=== PATIENT | female | born 1940 | race Caucasian/White ===

== ENCOUNTER → 2021-04-04 10:28 | Outpatient (BNVA) | payer MEDICARE, SELFPAY | PROVIDERS: PCP Internal Medicine; Visit Provider Nurse Practitioner Family | DX: G25.0 Essential tremor (principal); R41.3 Other amnesia; R49.8 Other voice and resonance disorders | CPT/HCPCS: 99212 ==

== ENCOUNTER → 2021-11-02 10:01 | Outpatient (BNVA) | payer MEDICARE, SELFPAY | PROVIDERS: PCP Internal Medicine; Visit Provider Nurse Practitioner Family | DX: G25.0 Essential tremor (principal); R49.8 Other voice and resonance disorders; G47.19 Other hypersomnia; R06.83 Snoring; Z79.899 Other long term (current) drug therapy | CPT/HCPCS: 99212 ==

== ENCOUNTER → 2021-11-26 12:44 | Outpatient (REF) | payer MEDICARE, SELFPAY | LOC: HO.SL 12:44 | PROVIDERS: PCP Physician Assistant Medical; Visit Provider Nurse Practitioner Family | DX: G47.19 Other hypersomnia (principal); R06.83 Snoring | CPT/HCPCS: 95806 ==

== ENCOUNTER 2023-07-10 08:11 | Outpatient (AMB) | payer MEDICARE, SELFPAY ==
--- NOTE | 2023-07-10 08:33 | MHC.OFFVIS ---
Vital Signs 07/10/23 08:37 Height 5 ft Weight 189 lb BMI 36.9 BP 120/78 Blood Pressure Location Rt brachial Position Sitting Pulse 62 Pulse Source Pulse Oximeter Pulse Oximetry (%) 96 Oxygen Delivery Method Room Air Intake Visit Reasons: Follow up-LVM Intake Note: Patient presents for follow up on central tremors. having issues falling asleep and having trouble remembering things. Allergies No Known Allergies Allergy (Verified 07/10/23 08:38) Medication List - Last Reconciled 07/10/23 by VICENTE Garcia amlodipine 5 mg PO DAILY carbidopa-levodopa 25-100 mg 1 tab PO BID 30 days cetirizine (Zyrtec) 10 mg PO DAILY gabapentin 400 mg PO BID 90 days levothyroxine 50 mcg PO DAILY lorazepam 0.5 mg PO DAILY PRN meloxicam 15 mg PO DAILY primidone 50 mg PO BID 30 days sertraline 50 mg PO DAILY simvastatin 20 mg PO BEDTIME HPI Comments Details: 82-yr-old female presents for f/u visit- pt last seen in Oct 2021. Pt denies any significant interval medical history changes. Pt tried CD-LD 25-100mg - however it made her feel weird, caused her to feel like she would fall when she got up. Only tried for < 1 week, so not sure if it helped w/ the tremor or not. She has been noticing increased right hip pain d/t bursitis. Then a few weeks ago, she had a right lockwood's cyst which made it difficult to walk. She now sees derm- for chronic skin rash- tx's w/ zyrtec and topical tx's. She is noticing increased tremor- feels internal tremor, especially at night. When she goes to bed, she feels everything is tightening and she has to work to help herself relax. Voice tremor is stable. ADL's: Ind Swallowing: No issues Drooling: Denies Orthostatic lightheadedness: Denies Constipation: Occasional Urinary symptoms: No issues Tremor: as above Dyskinesia: denies Stiffness: as above Gait changes: Usually ok- a bit more difficult d/t recent hip/knee issues. Freezing: Denies Falls: Denies Mood: Had a bout of depression earlier this year- but mood is better now Hallucinations: Denies Memory: More difficulty remembering. She reports that she came to this appointment on Friday (though appt was today) and got lost coming here (though our office has moved), and she again came here yesterday though appoint was for today. This is not typical for her, but she wanted to report it. She forgets things her dtr has told her. Socializes. Has a scrabble group today. Sleep: Not great, thinks this is r/t her hip pain. Exercise: Usually takes walks w/ her friends. [facility] Medical History (Updated 07/10/23 @ 09:24 by VICENTE Garcia) Arthritis Surgical History Hx of breast surgery Family History Mother Hypotension Father No known health problems Social History Alcohol intake: never Patient Tobacco Use Status: Never used Tobacco Review of Systems Const All systems reviewed & are unremarkable except as noted in HPI and below Physical Exam Vital Signs: Last Vital Signs Pulse 62 07/10/23 08:37 BP 120/78 07/10/23 08:37 Pulse Ox 96 07/10/23 08:37 Oxygen Delivery Method Room Air 07/10/23 08:37 BMI result Body Mass Index 36.9 Const General: cooperative and no acute distress Resp Effort & Inspection: normal respiratory effort and able to speak in complete sentences Neuro Other: General: A&O x's 3 Expression: Intact Voice: Soft, mild voice Tremor: BUE postural tremor, head tremor Tone: BUE, more so on right Dyskinesia: None FFM: Decreased Foot taps: Decreased Gait: Slow to stand, decreased arm swing, short steps, steady gait. Psych: Pleasant affect Assessment & Plan Assessment & Plan (1) Essential tremor: Comment: w/ mild PD s/s Code(s): G25.0 - Essential tremor Category: Medical (2) Cognitive changes: Code(s): R41.89 - Other symptoms and signs involving cognitive functions and awareness Category: Medical (3) Voice tremor: Code(s): R49.8 - Other voice and resonance disorders Category: Medical Plan For tremor Stopped CD-LD 25-100mg- not tolerated. Trial Ropinirole 0.25mg po tid- start as qhs. For now, continue: Primidone 50mg bid by 1/2 tab q week.. Gabapentin 400mg bid. For cognition- check labs for common etiologies. Future considerations- MRI brain, repeating HST/PSG- last HST showed very mild FLORI Orders: Orders Complete Blood Count Auto Diff Today - Unspecified osteoarthritis, unspecified site, R25.1 - Tremor, unspecified, R41.89 - Other symptoms and signs involving cognitive functions and awareness, R53.83 - Other fatigue Rheumatoid Factor Today - Unspecified osteoarthritis, unspecified site, R25.1 - Tremor, unspecified, R41.89 - Other symptoms and signs involving cognitive functions and awareness, R53.83 - Other fatigue Syphilis Screen Today - Unspecified osteoarthritis, unspecified site, R25.1 - Tremor, unspecified, R41.89 - Other symptoms and signs involving cognitive functions and awareness, R53.83 - Other fatigue TSH reflex Free T4 Today - Unspecified osteoarthritis, unspecified site, R25.1 - Tremor, unspecified, R41.89 - Other symptoms and signs involving cognitive functions and awareness, R53.83 - Other fatigue Vitamin B12 and Folate Today - Unspecified osteoarthritis, unspecified site, R25.1 - Tremor, unspecified, R41.89 - Other symptoms and signs involving cognitive functions and awareness, R53.83 - Other fatigue Methylmalonic Acid Today - Unspecified osteoarthritis, unspecified site, R25.1 - Tremor, unspecified, R41.89 - Other symptoms and signs involving cognitive functions and awareness, R53.83 - Other fatigue Homocysteine Today - Unspecified osteoarthritis, unspecified site, R25.1 - Tremor, unspecified, R41.89 - Other symptoms and signs involving cognitive functions and awareness, R53.83 - Other fatigue Comprehensive Met. Panel Today - Unspecified osteoarthritis, unspecified site, R25.1 - Tremor, unspecified, R41.89 - Other symptoms and signs involving cognitive functions and awareness, R53.83 - Other fatigue PETE Reflex Titer and Pattern Today - Unspecified osteoarthritis, unspecified site, R25.1 - Tremor, unspecified, R41.89 - Other symptoms and signs involving cognitive functions and awareness, R53.83 - Other fatigue Vitamin D 25-OH (D2 and D3) Today M19.90 - Unspecified osteoarthritis, unspecified site, R25.1 - Tremor, unspecified, R41.89 - Other symptoms and signs involving cognitive functions and awareness, R53.83 - Other fatigue Medications: New ropinirole 0.25 mg PO TID 30 days 90 tabs 6RF Discontinued carbidopa-levodopa 25-100 mg take w/ a cracker 30 minutes before breakfast and dinner, Discontinued Reason: Doctor's Order 1 tab PO BID 30 days 60 tabs 3RF Coding Level of Care Code Est Pt Level 4 (38940) Diagnoses Essential tremor G25.0 Cognitive changes R41.89 Voice tremor R49.8
[2023-07-10 08:37] VITALS: BP 120/78; PULSE 62; O2SAT 96; BMI 36.9
== END 2023-07-10 09:35 | disposition home or self-care (01) ==
PROVIDERS: PCP Physician Assistant Medical; Visit Provider Nurse Practitioner Family
DX: G25.0 Essential tremor (principal); R41.89 Other symptoms and signs involving cognitive functions and awareness; R49.8 Other voice and resonance disorders
CPT/HCPCS: 99214

== ENCOUNTER → 2023-07-10 08:11 | Outpatient (BNVA) | payer MEDICARE, SELFPAY | PROVIDERS: PCP Physician Assistant Medical; Visit Provider Nurse Practitioner Family | DX: G25.0 Essential tremor (principal); R41.89 Other symptoms and signs involving cognitive functions and awareness; R49.8 Other voice and resonance disorders | CPT/HCPCS: 99212 ==

== ENCOUNTER 2023-07-11 11:37 | Outpatient (REF) | payer MEDICARE, SELFPAY ==
[2023-07-11 12:26] LABS: MANUAL DIFF FLAG NO
[2023-07-11 12:54] LABS: Basophils Percent Auto 0.4 % (0-2); Eosinophils Absolute Auto 0.2 X10*3/uL (0.0-0.4); Eosinophils Percent Auto 2.7 % (0-4); Hematocrit 41.8 % (37.0-47.0); Hemoglobin 13.4 g/dl (12.0-16.0); Imm Gran Abs Auto 0.02 X10*3/uL (0.00-0.03); Imm Gran Pct Auto 0.3 % (0.0-0.4); Lymphocytes Absolute Auto 1.2 X10*3/uL (1.2-4.9); Lymphocytes Percent Auto 16.3 % (20-40); Mean Corpuscular HGB Conc 32.1 g/dl (31.0-35.0); Mean Corpuscular Volume 90.5 fL (80.0-98.0); Mean Platelet Volume 9.6 fL (9.4-12.3); Monocytes Absolute Auto 0.6 X10*3/uL (0.1-1.2); Monocytes Percent Auto 7.5 % (2-11); Neutrophils Absolute Auto 5.4 x10*3/uL (2.0-8.3); Neutrophils Percent Auto 72.8 % (45-73); Platelet Count 206 X10*3/uL (160-400); Red Blood Count 4.62 X10*6/uL (4.20-5.50); Red Cell Distribution Width 13.9 % (11.0-16.0); White Blood Count 7.4 X10*3/uL (4.8-10.8)
[2023-07-11 13:27] LABS: Rheumatoid Factor < 13.0 IU/mL (<15.0)
[2023-07-11 13:39] LABS: Alanine Aminotransferase 24 U/L (0-31); Albumin Level 4.2 g/dL (3.5-5.0); Alkaline Phosphatase 89 U/L (39-117); Anion Gap 13 (12-20); Aspartate Amino Transferase 25 U/L (5-31); Bilirubin Total 0.6 mg/dL (0.0-1.0); Blood Urea Nitrogen 13 mg/dL (9-16); Calcium 9.6 mg/dL (8.4-10.2); Carbon Dioxide 28 mmol/L (22-29); Chloride 103 mmol/L (96-108); Estimated Glomerular Filt Rate 54; Glucose Random 118 mg/dL (60-115); Sodium 140 mmol/L (135-145); Total Protein 7.1 g/dL (6.5-8.0)
[2023-07-11 13:45] LABS: TSH reflex Free T4 0.76 uIU/mL (0.32-4.0)
[2023-07-11 13:58] LABS: Folate 15.4 ng/mL (> or = 4.0); Vitamin B12 368 pg/mL (200-900)
[2023-07-12 10:17] LABS: Syphilis Screen Nonreactive (Nonreactive)
[2023-07-14 19:04] LABS: Homocysteine 14.4 umol/L (<10.4)
[2023-07-15 15:23] LABS: Anti Nuclear Antibody Screen NEGATIVE (NEGATIVE)
[2023-07-16 10:33] LABS: Methylmalonic Acid 479 nmol/L (87-318)
[2023-07-16 18:14] LABS: Vitamin D 25-OH, D2 <4 ng/mL; Vitamin D 25-OH, D3 34 ng/mL; Vitamin D 25-OH, Total 34 ng/mL (30-100)
== END 2023-07-11 11:38 | disposition home or self-care (01) ==
LOC: HO.HMGCLDS 11:37
PROVIDERS: PCP Nurse Practitioner; Visit Provider Nurse Practitioner Family
DX: M19.90 Unspecified osteoarthritis, unspecified site (principal); R25.1 Tremor, unspecified; R53.83 Other fatigue; R41.89 Other symptoms and signs involving cognitive functions and awareness
CPT/HCPCS: 36415; 80053; 82306; 82607; 82746; 83090; 83921; 84443; 85025; 86038; 86431; 86780

== ENCOUNTER 2023-12-11 13:07 | Outpatient (AMB) | payer MEDICARE, SELFPAY ==
[2023-12-11 13:18] VITALS: BP 150/70; BMI 36.5
--- NOTE | 2023-12-11 13:18 | MHC.OFFVIS ---
Vital Signs 12/11/23 13:18 Height 5 ft Weight 187 lb BMI 36.5 BP 150/70 H Blood Pressure Location Rt brachial Position Sitting Intake Visit Reasons: Follow Up Intake Note: Patient presents for follow up Allergies No Known Allergies Allergy (Verified 12/11/23 13:20) Medication List - Last Reconciled 12/11/23 by Cate Wagner MD amlodipine 5 mg PO DAILY cetirizine (Zyrtec) 10 mg PO DAILY gabapentin 400 mg PO BID 90 days levothyroxine 50 mcg PO DAILY lorazepam 0.5 mg PO DAILY PRN mecobalamin (vitamin B12) 500 mcg PO DAILY 30 days meloxicam 15 mg PO DAILY primidone 50 mg PO BID 30 days sertraline 50 mg PO DAILY simvastatin 20 mg PO BEDTIME HPI Comments Details: 83-yr-old female presents for f/u visit- pt last seen 6 mths ago Her tremors are worse. she was trialed on roinirole 0.25 mg tid - in 2 weeks she developed a reaction, hives - corporate general manager did a biopsy but no diagnosis so presumed to be a reaction to ropinirole . Her rash improved after several months. Pt tried CD-LD 25-100mg - however it made her feel weird, caused her to feel like she would fall when she got up. She is noticing increased tremor- feels internal tremor, especially at night.Increase in voice, hand and head tremors.ANxiety worsens her tremors Voice tremor is stable. History from last visit-ADL's: Ind Swallowing: No issues Drooling: Denies Orthostatic lightheadedness: Denies Constipation: Occasional Urinary symptoms: No issues Tremor: as above Dyskinesia: denies Stiffness: as above Gait changes: Usually ok- a bit more difficult d/t recent hip/knee issues. Freezing: Denies Falls: Denies Mood: Had a bout of depression earlier this year- but mood is better now Hallucinations: Denies Memory: More difficulty remembering. She reports that she came to this appointment on Friday (though appt was today) and got lost coming here (though our office has moved), and she again came here yesterday though appoint was for today. This is not typical for her, but she wanted to report it. She forgets things her dtr has told her. Socializes. Has a scrabble group today. Sleep: Not great, thinks this is r/t her hip pain. Exercise: Usually takes walks w/ her friends. [facility] Medical History (Updated 12/11/23 @ 13:37 by Cate Wagner MD) Obstructive sleep apnea hypopnea, mild Arthritis Surgical History Hx of breast surgery Family History Mother Hypotension Father No known health problems Social History Alcohol intake: never Patient Tobacco Use Status: Never used Tobacco Physical Exam Vital Signs: Last Vital Signs BP 150/70 H 12/11/23 13:18 BMI result Body Mass Index 36.5 Const General: cooperative and no acute distress Resp Effort & Inspection: normal respiratory effort and able to speak in complete sentences Neuro Other: General: A&O x's 3 Expression: Intact Voice: Tremors Tremor: BUE postural tremor, action tremors L>R,, head tremor, lower jaw tremors Foot taps: Decreased Gait: Slow to stand, decreased arm swing, good posture Psych: Pleasant affect Assessment & Plan Assessment & Plan (1) Essential tremor: Comment: predominantly voice tremors Code(s): G25.0 - Essential tremor Category: Medical (2) Cognitive changes: Code(s): R41.89 - Other symptoms and signs involving cognitive functions and awareness Category: Medical (3) Obstructive sleep apnea hypopnea, mild: Code(s): G47.33 - Obstructive sleep apnea (adult) (pediatric) Category: Medical Plan For tremor Stopped CD-LD 25-100mg- not tolerated. Stop Ropinirole 0.25mg po tid- Trialed propranolol in the past but had bradycardia For now, continue: Increase Primidone 50 mg tid Gabapentin 400mg bid. For cognition- MRI brain Refer for cognitive therapy will consider decreasing gabapentin Orders: Orders MR head/brain wo con Today R41.89 - Other symptoms and signs involving cognitive functions and awareness Referrals Speech and Hearing Referral R41.89 - Other symptoms and signs involving cognitive functions and awareness Medications: Changed From primidone 50 mg PO BID 30 days 60 tabs 6RF To primidone 50 mg PO TID 30 days 90 tabs 6RF Refilled gabapentin 400 mg PO BID 90 days 180 caps 3RF Discontinued ropinirole Discontinued Reason: Patient no longer taking 0.25 mg PO TID 30 days 90 tabs 6RF Coding Level of Care Code Est Pt Level 4 (33555) Complex EM visit Add On G2211 Diagnoses Essential tremor G25.0 Cognitive changes R41.89 Obstructive sleep apnea hypopnea, mild G47.33
== END 2023-12-11 13:50 | disposition home or self-care (01) ==
PROVIDERS: PCP Nurse Practitioner; Visit Provider Psychiatry & Neurology Neurology
DX: G25.0 Essential tremor (principal); R41.89 Other symptoms and signs involving cognitive functions and awareness; G47.33 Obstructive sleep apnea (adult) (pediatric)
CPT/HCPCS: 99214; G2211

== ENCOUNTER → 2023-12-11 13:07 | Outpatient (BNVA) | payer MEDICARE, SELFPAY | PROVIDERS: PCP Nurse Practitioner; Visit Provider Psychiatry & Neurology Neurology | DX: G25.0 Essential tremor (principal); R41.89 Other symptoms and signs involving cognitive functions and awareness; G47.33 Obstructive sleep apnea (adult) (pediatric) | CPT/HCPCS: 99212 ==

== ENCOUNTER 2024-01-05 14:43 | Emergency (ER) | payer MEDICARE, SELFPAY ==
--- NOTE | ~2024-01-05 | XR_ITS ---
EXAMINATION: Right foot series. Right ankle series. CLINICAL INFORMATION: Pain injury COMPARISON: None. TECHNIQUE: 3 views of the right ankle and 3 views of the right foot FINDINGS: Right ankle and foot: There is soft tissue prominence of the ankle region which could reflect normal variation or mild edema. I do not see a fracture. There is a moderate-sized plantar calcaneal spur. Mild osteoarthritis of the 3rd DIP joint. XR/XR ankle RT min 3V IMPRESSION: 1. No fracture. 2. Soft tissue prominence of the ankle region which could reflect edema or normal variation. 3. Plantar calcaneal spur. 4. Mild osteoarthritis. Electronically signed by: Johnson Sandhu MD 01/05/2024 05:28 PM NICOLE COLLAZO
--- NOTE | ~2024-01-05 | XR_ITS ---
EXAMINATION: Right foot series. Right ankle series. CLINICAL INFORMATION: Pain injury COMPARISON: None. TECHNIQUE: 3 views of the right ankle and 3 views of the right foot FINDINGS: Right ankle and foot: There is soft tissue prominence of the ankle region which could reflect normal variation or mild edema. I do not see a fracture. There is a moderate-sized plantar calcaneal spur. Mild osteoarthritis of the 3rd DIP joint. XR/XR foot RT min 3V IMPRESSION: 1. No fracture. 2. Soft tissue prominence of the ankle region which could reflect edema or normal variation. 3. Plantar calcaneal spur. 4. Mild osteoarthritis. Electronically signed by: Johnson Sandhu MD 01/05/2024 05:28 PM NICO[facility] COLLAZO
[2024-01-05 14:55] VITALS: BP 107/55; PULSE 56; RESP 20; TEMP 37.1; O2SAT 98; BMI 30.7
--- NOTE | 2024-01-05 14:59 | ED.GENADULT ---
HPI - General Adult General Chief complaint: Extremity Injury, Lower Stated complaint: fall, swollen ankle Time Seen by Provider: 01/05/24 19:53 Source: patient Mode of arrival: ambulatory Limitations: no limitations History of Present Illness ED Provider: ru lincoln NP HPI narrative: Patient is an 83-year-old female who presents emergency department for evaluation. She reports that she missed a step going down the stairs resulting in an injury to the right ankle. She has been able to weightbear since this happened but pain does increase with weight-bearing. She typically is ambulatory without any assistive devices, however due to her pain she has been using her 's walker to help alleviate this. She has some localized swelling there. She denies any fevers, chills, redness, calf pain swelling or redness, history of DVT. Denies any numbness or tingling sensation to the foot. Related Data Home Medications ?Medication ?Instructions ?Recorded ?Confirmed amlodipine 5 mg tablet 5 mg PO DAILY 04/04/21 12/11/23 levothyroxine 50 mcg tablet 50 mcg PO DAILY 04/04/21 12/11/23 lorazepam 0.5 mg tablet 0.5 mg PO DAILY PRN 04/04/21 12/11/23 meloxicam 15 mg tablet 15 mg PO DAILY 04/04/21 12/11/23 sertraline 50 mg tablet 50 mg PO DAILY 04/04/21 12/11/23 simvastatin 20 mg tablet 20 mg PO BEDTIME 04/04/21 12/11/23 cetirizine 10 mg tablet (Zyrtec) 10 mg PO DAILY 07/10/23 12/11/23 Previous Rx's ?Medication ?Instructions ?Recorded mecobalamin (vitamin B12) 500 mcg 500 mcg PO DAILY 30 days #30 tabs 07/25/23 chewable tablet gabapentin 400 mg capsule 400 mg PO BID 90 days #180 caps 12/11/23 primidone 50 mg tablet 50 mg PO TID 30 days #90 tabs 12/11/23 Allergies Allergy/AdvReac Type Severity Reaction Status Date / Time No Known Allergies Allergy Verified 01/05/24 15:00 Review of Systems Review of Systems: Yes all other systems are reviewed and are negative PMFSH Past Medical History Attestation statement: The following information was validated with the patient. Source: old records reviewed Medical History Obstructive sleep apnea hypopnea, mild Arthritis Surgical History Hx of breast surgery Family History Family History Mother Hypotension Father No known health problems Social History Social History Alcohol intake: never Patient Tobacco Use Status: Never used Tobacco Advance Directives: No Advance Directives Information Provided: No Do you have a plan to hurt others: No Plan Physical Exam ED Vital Signs: Vital Signs - 24 hr 01/05/24 14:55 Temperature 98.7 F Pulse Rate 56 Respiratory Rate 20 Blood Pressure 107/55 L Pulse Oximetry 98 Oxygen Delivery Method Room Air BMI result Body Mass Index 30.7 Appearance: Alert.?Oriented to person, place and time. No acute distress.?Normal affect. CVS: Heart sounds normal. Normal heart rate and rhythm.? Pulses normal.?? Respiratory: No respiratory distress.? Lung sounds clear to auscultation bilaterally?? Abdomen: Soft and non-tender. Normoactive bowel sounds. Skin: Skin warm and dry.? Normal skin color.? Extremities: Localized swelling to the right ankle. 2+ DP/PT pulse. No erythema or warmth.? No calf ttp? Neuro: Moves all extremities spontaneously. Sensation intact bilaterally. No focal neuro deficits. Ambulates with antalgic gait. Course Course Course Narrative: RME performed by Yancy Gonzalez PA-C. Patient is a 83 year old assigned female at presenting to the emergency department with right ankle and foot pain. Patient states she twisted her right ankle and foot causing her to stumble and she landed directly on her right ankle. Detailed physical exam and review of systems are deferred to the triage clinician. Imaging ordered. Patient placed back in the waiting room pending room availability and results. Medical Decision Making Medical Decision Making MDM Narrative: Patient is an 83-year-old female presents emergency department for evaluation of traumatic right ankle pain as per HPI. Overall is well-appearing, nontoxic, afebrile. No erythema or warmth to suggest septic joint/gout. No calf pain or tenderness personal history of DVT T/PE to suggest acute DVT. XR is without evidence of acute fracture dislocation. Symptoms at this time are consistent with a sprain. I discussed use of an Aircast, would defer crutches given her age immobility, advised continued use of the walker that she has to help facilitate with weight-bearing. Outpatient follow-up with primary care doctor. Reviewed conservative treatment. All questions answered Differential Diagnosis Differential Diagnoses: The differential diagnosis associated with the presentation includes (See narrative above) Independent Interpretation I performed an independent interpretation of an: Plain X-Ray (No acute fracture) Radiology Impression Discussion of test interpretation with radiology: I have reviewed the radiologist's reading. Radiologist Impression: XR/XR foot RT min 3V IMPRESSION: 1. No fracture. 2. Soft tissue prominence of the ankle region which could reflect edema or normal variation. 3. Plantar calcaneal spur. 4. Mild osteoarthritis. Independent Historian Clinical information obtained from an independent historian. History obtained from or confirmed by: Other (Daughter) External Record Review External record reviewed: Outpatient record Prescription Management I considered prescription management with: Pain Medication Discharge Plan Discharge Clinical Impression: Ankle sprain Patient Disposition: Home, Self-Care Instructions: Ankle Sprain (ED), R.I.C.E. Treatment (ED) Additional Instructions: You can take Tylenol 500 mg, 2 tablets (1,000mg) every 4-6 hours as needed for pain, but not to exceed 3 doses daily (3,000mg).? Follow the instructions above regarding rest ice and elevation. Follow-up with primary care doctor. Return to emergency department any new or worsening symptoms or concerns. Prescriptions: No Action mecobalamin (vitamin B12) 500 mcg tablet,chewable 500 mcg PO DAILY 30 Days Qty: 30 6RF levothyroxine 50 mcg tablet 50 mcg PO DAILY simvastatin 20 mg tablet 20 mg PO BEDTIME lorazepam 0.5 mg tablet 0.5 mg PO DAILY PRN meloxicam 15 mg tablet 15 mg PO DAILY amlodipine 5 mg tablet 5 mg PO DAILY sertraline 50 mg tablet 50 mg PO DAILY cetirizine [Zyrtec] 10 mg tablet 10 mg PO DAILY Rx Instructions: 1 tab daily and 1 extra tab per day prn rash. gabapentin 400 mg capsule 400 mg PO BID 90 Days Qty: 180 3RF primidone 50 mg tablet 50 mg PO TID 30 Days Qty: 90 6RF Referrals: Nanette,Prosper, APPLIED BIOLOGY PROFESSOR [Primary Care Provider] - Print Language: Tunisian
[2024-01-05 21:14] VITALS: BP 107/55; PULSE 56; RESP 20; TEMP 37.1; O2SAT 98
== END 2024-01-05 21:15 | disposition home or self-care (01) ==
PROVIDERS: Emergency Provider Emergency Medicine; PCP Nurse Practitioner
DX: S93.401A Sprain of unspecified ligament of right ankle, initial encounter (principal); W10.9XXA Fall (on) (from) unspecified stairs and steps, initial encounter; Y93.89 Activity, other specified; Y92.89 Other specified places as the place of occurrence of the external cause; Y99.8 Other external cause status; Z79.899 Other long term (current) drug therapy
CPT/HCPCS: 73610; 73630; 99283

== ENCOUNTER 2024-01-08 09:31 | Outpatient (REF) | payer MEDICARE, SELFPAY ==
--- NOTE | ~2024-01-08 | MR_ITS ---
EXAMINATION: MR BRAIN WITHOUT CONTRAST CLINICAL INFORMATION: Patient reports history of tremors, memory changes COMPARISON: None available. TECHNIQUE: MRI of the brain was obtained using routine sequences without contrast. FINDINGS: No acute intracranial hemorrhage or infarct. Scattered and confluent periventricular and deep white matter T2/FLAIR hyperintensities, nonspecific however commonly seen with small vessel ischemic disease. Diffuse prominence of the sulci with associated ex vacuo dilation of the ventricles compatible with global cerebral atrophy. No midline shift or hydrocephalus. No acute extra-axial fluid collections. The osseous structures are unremarkable. The pituitary gland, pineal gland and remaining midline structures are unremarkable. Sequela bilateral lens replacement. Otherwise, no acute orbital pathology. Mucous retention cysts in the left greater than right maxillary sinuses. The mastoid air cells are clear. MR/MR head/brain wo con IMPRESSION: 1. No acute intracranial abnormalities. 2. Global cerebral atrophy and chronic microangiopathy. Electronically signed by: Janell Mcnally MD 02/03/2024 04:27 PM NICOLE
== END 2024-01-08 09:32 | disposition home or self-care (01) ==
LOC: HO.MRI 09:31
PROVIDERS: PCP Nurse Practitioner; Visit Provider Psychiatry & Neurology Neurology
DX: R41.89 Other symptoms and signs involving cognitive functions and awareness (principal)
CPT/HCPCS: 70551

== ENCOUNTER 2024-01-29 09:39 | Outpatient (RCR) | payer MEDICARE, SELFPAY ==
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
== END 2024-02-12 14:14 | disposition home or self-care (01) ==
LOC: HO.SH 09:39
PROVIDERS: PCP Nurse Practitioner; Visit Provider Psychiatry & Neurology Neurology
DX: R41.89 Other symptoms and signs involving cognitive functions and awareness (principal)
CPT/HCPCS: 96125

== ENCOUNTER 2024-01-29 13:37 | Outpatient (AMB) | payer MEDICARE, SELFPAY ==
[2024-01-29 14:04] VITALS: BP 140/66; PULSE 74; O2SAT 96
--- NOTE | 2024-01-29 14:04 | MHC.OFFVIS ---
Vital Signs 01/29/24 14:04 Height 5 ft 6 in BP 140/66 H Blood Pressure Location Rt brachial Position Sitting Pulse 74 Pulse Source Pulse Oximeter Pulse Oximetry (%) 96 Oxygen Delivery Method Room Air Intake Visit Reasons: 7 Month F/U Intake Note: patient following up Allergies No Known Allergies Allergy (Verified 01/29/24 14:05) HPI Comments Details: 83-yr-old female presents for f/u visit- pt last seen Nov 2023 for Essential tremors. Interim Medical History: Ankle sprain, Jan 04, 2024, missed a step much better now. R. Achilles deltoid will f/u with Ortho 2023. 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 Her rash improved after several months. Pt tried CD-LD 25-100mg - however it made her feel weird, caused her to feel like she would fall when she got up. She is noticing increased tremor- feels internal tremor, especially at night. Increase in voice, hand and head tremors. ANxiety worsens her tremors. Voice tremor is stable. MRI results pending will call. History from last visit-ADL's: Ind Swallowing: No issues Drooling: Denies Orthostatic lightheadedness: Denies Constipation: Occasional Urinary symptoms: No issues Tremor: as above Dyskinesia: denies Stiffness: as above Gait changes: Usually ok- a bit more difficult d/t recent hip/knee issues. Freezing: Denies Falls: Denies Mood: Had a bout of depression earlier this year- but mood is better now Hallucinations: Denies Memory: More difficulty remembering. She reports that she came to this appointment on Friday (though appt was today) and got lost coming here (though our office has moved), and she again came here yesterday though appoint was for today. This is not typical for her, but she wanted to report it. She forgets things her dtr has told her. Socializes. Has a scrabble group today. Sleep: Not great, thinks this is r/t her hip pain. Exercise: Usually takes walks w/ her friends. [facility] Medical History Obstructive sleep apnea hypopnea, mild Arthritis Surgical History Hx of breast surgery Family History Mother Hypotension Father No known health problems Social History Alcohol intake: never Patient Tobacco Use Status: Never used Tobacco Review of Systems Const All systems reviewed & are unremarkable except as noted in HPI and below Physical Exam Vital Signs: Last Vital Signs Pulse 74 01/29/24 14:04 BP 140/66 H 01/29/24 14:04 Pulse Ox 96 01/29/24 14:04 Oxygen Delivery Method Room Air 01/29/24 14:04 Const General: cooperative and no acute distress Resp Effort & Inspection: normal respiratory effort and able to speak in complete sentences Neuro Other: General: A&O x's 3 Expression: Intact Voice: Tremors Tremor: BUE postural tremor, action tremors L>R,, head tremor, lower jaw tremors Foot taps: Decreased Gait: Slow to stand, decreased arm swing, good posture Psych: Pleasant affect Results Reviewed Results Reviewed: MRI Dec 2023 results pending and CBT Neuro awaiting results. Assessment & Plan Assessment & Plan (1) Essential tremor: Comment: predominantly voice tremors Code(s): G25.0 - Essential tremor Category: Medical (2) Cognitive changes: Code(s): R41.89 - Other symptoms and signs involving cognitive functions and awareness Category: Medical (3) Obstructive sleep apnea hypopnea, mild: Code(s): G47.33 - Obstructive sleep apnea (adult) (pediatric) Category: Medical Plan For Essential Tremor Trialed her on and Stopped CD-LD 25-100mg- not tolerated. Stop Ropinirole 0.25mg po tid- Hives Trialed propranolol in the past but had bradycardia For now, continue: Primidone Mysoline 50 mg tid Gabapentin 400mg bid. For cognition- MRI brain- pending results, will call her. Referred for neuro cognitive therapy- Jan 28 2025, pending results. Will consider decreasing Gabapentin in the future. Will Consider Botox for vocal tremor after ENT consult. Patient Instructions: MRI results are pending. Coding Level of Care Code Est Pt Level 3 (73333) Diagnoses Essential tremor G25.0 Cognitive changes R41.89 Obstructive sleep apnea hypopnea, mild G47.33
--- OUTSIDE RECORDS SUMMARY | 2024-02-04 02:37 | XMS_ITS ---
Author Organization [facility] Address [address] [place] [address] Care Team Providers Care Extension Specialist Name Role Phone Shaka Segovia MD Primary Care Provider UnavailJem Adler [phone] REASON FOR VISIT cx ON 02/09 Encounters Encounter Location Date Provider Diagnosis [facility] [address] [place] [address] 01/20/2024 Jem Johnson Plan Of Treatment No Information Progress Notes * BYRONMayelaeDOB: 3 (83 yo F)Acc No.[id number]:01/20/2024 Patient:?Olena MATTHEWS :1940???Age:83 Y???Sex:Female Address:[address] [address], [place], [address] * true * Date:? Generated for Printi lamar/Eneida/eTransmitting on:?02/04/2024 02:36 AM EST
--- OUTSIDE RECORDS SUMMARY | 2024-02-04 02:37 | XMS_ITS ---
Author Organization [facility] Address [address] [facility] [address] [place] [address] Care Team Providers Care Hasher Operator Name Role Phone Prosper Fitzpatrick Primary Care Provider UnavailVIVIAN Smith Unavailable [phone] ALLERGIES No Known Allergies REASON FOR VISIT right leg and heel pain MEDICATIONS Medication SIG (Take, Route, Frequency, Duration) Notes Start Date End Date Status Meloxicam 15 MG 1 tablet Orally Once a day Active Levothyroxine Sodium 50 MCG 1 tablet in the morning on an empty stomach Orally Once a day Active LORazepam 0.5 MG 1 tablet at bedtime as needed Orally Once a day Not-Taking amLODIPine Besylate 5 MG 1 tablet Orally Once a day Active Gabapentin 400 MG 1 capsule Orally Twi ce a day Active Sertraline HCl 50 MG 1 tablet Orally Onc e a day 75MG Active Simvastatin 20 MG 1 tablet in the even ing Orally Once a day Active Primidone 50 MG 1 tablet Orally Thre e times a day Active Propranolol HCl 10 MG 1 tablet on an emp ty stomach Orally every 12 hrs Not-Taking Multivitamin - 1 tablet Orally Once a day Active Triamcinolone Acetonide 0.1 % 1 application Externally Two times a Week Active Clobetasol Propionate 0.05 % 1 application Externally Twice a day Active ZyrTEC 10 MG 1 tablet Orally Once a day Not-Taking rOPINIRole HCl 0.25 MG 1 tablet 1 to 3 h ours before bedtime Orally Once a day Active Diclofenac Sodium 1 % 1 gm to the right foot and ankle Externally twice daily for 30 days 01/12/2024 Active PROBLEMS Problem Type ICD Code Onset Dates Problem Status W/U Status Risk SNOMED Code Notes Problem Plantar fasciitis of right foot (M72.2) Active confirmed [id number] VITAL SIGNS Weight 190.1 lbs 01/12/2024 Height 4ft 11in in 01/12/2024 BMI 38.39 kg/m2 01/12/2024 Heart Rate 70 /min 01/12/2024 Temperature 96.9 degrees Fahrenheit 01/12/20 24 Respiratory Rate 16 /min 01/12/2024 PROCEDURES Procedure Date Ordered Date Performed Result Body Sit e INJ TENDON SHEATH/LIGAMENT/FASCIA 01/12/2024 N/ A Encounters Encounter Location Date Provider Diagnosis [facility] [address] [facility] [address] [place] [address] 01/12/2024 VIVIAN MILLER Achilles tendinitis of right lower extremity M76.61 ; Plantar fasciitis of right foot M72.2 and Pain in right foot M79.671 ASSESSMENTS Encounter Date Diagnosis Assessment Notes Treatment Notes Treatment Clinical Notes Section Notes 01/12/2024 Achilles tendinitis of right lower extremity (ICD-10 - M76.61) This is an outpatient visit for evaluation and management of a new patient, which required appropriate review of pertinent medical history, review of any previous imaging, review of all previous records, and examination and decision-making. Time was 45 minutes spent in review of all these facets including face to face discussion with the patient regarding my findings and in discussion of a current and future treatment plan. I reviewed the images from the emergency room. No evidence of a right ankle fracture. We discussed she has tendinitis of the Achilles tendon of the right ankle. She has no evidence of a tear or rupture of the Achilles tendon. She has no weakness of the tendon groups on examination today. We discussed tendon injuries typically do worsen with use or activity. I explained it can take 4-8 weeks for the areas to heal from the point of injury. We discussed ice can be helpful at first, but now I would recommend heat instead. I also recommended that she start an NSAID. RX Diclofenac gel to apply to the right leg twice daily PRN pain. Avoid stretching for now. The other recommendation that I discussed with the patient is temporary immobilization of the tendons to allow for rest and healing. I administered an debbie wrap today but also discussed a compression ankle sleeve for the right ankle. I told the patient to wear this daily for 4 weeks. If she is pain free in 2 weeks, she can start to come out of the brace, if not then she will need to use the brace for 4 weeks. We discussed if little to no improvement in 4 weeks, I would like her to return for another evaluation. Patient is in agreement with this plan. 01/12/2024 Plantar fasciitis of right foot (ICD-10 - M72.2) Consent was reviewed and signed by the patient for a steroid injection into the right plantar fascia. Pt agreed. 3cc total steroid injection was given into the right foot. Pt tolerated well. Post-Injection instructions were given to the patient. Pt instructed to ice/elevate the foot tonight. Discussed the pathology of plantar fasciitis, what that means and how it affects the patient's ADL. Reviewed stretching and icing exercises with the patient, handout dispensed, and patient instructed to perform twice daily. Recommended starting a course of NSAIDs with the patient, RX diclofenac gel. Discussed proper shoe gear with the patient and recommended over the counter inserts. 01/12/2024 Pain in right foot (ICD-10 - M79.671) PLAN OF TREATMENT Medication Medication Name Sig Start Date Stop Date Notes Diclofenac Sodium 1 % 1 gm to the right foot and ankle Externally twice daily for 30 days 01/12/2024 Treatment Notes Assessment Notes Achilles tendinitis of right lower extremity This is an outpatient visit for evaluation and management of a new patient, which required appropriate review of pertinent medical history, review of any previous imaging, review of all previous records, and examination and decision-making. Time was 45 minutes spent in review of all these facets including face to face discussion with the patient regarding my findings and in discussion of a current and future treatment plan. I reviewed the images from the emergency room. No evidence of a right ankle fracture. We discussed she has tendinitis of the Achilles tendon of the right ankle. She has no evidence of a tear or rupture of the Achilles tendon. She has no weakness of the tendon groups on examination today. We discussed tendon injuries typically do worsen with use or activity. I explained it can take 4-8 weeks for the areas to heal from the point of injury. We discussed ice can be helpful at first, but now I would recommend heat instead. I also recommended that she start an NSAID. RX Diclofenac gel to apply to the right leg twice daily PRN pain. Avoid stretching for now. The other recommendation that I discussed with the patient is temporary immobilization of the tendons to allow for rest and healing. I administered an debbie wrap today but also discussed a compression ankle sleeve for the right ankle. I told the patient to wear this daily for 4 weeks. If she is pain free in 2 weeks, she can start to come out of the brace, if not then she will need to use the brace for 4 weeks. We discussed if little to no improvement in 4 weeks, I would like her to return for another evaluation. Patient is in agreement with this plan. Plantar fasciitis of right foot Consent was reviewed and signed by the patient for a steroid injection into the right plantar fascia. Pt agreed. 3cc total steroid injection was given into the right foot. Pt tolerated well. Post-Injection instructions were given to the patient. Pt instructed to ice/elevate the foot tonight. Discussed the pathology of plantar fasciitis, what that means and how it affects the patient's ADL. Reviewed stretching and icing exercises with the patient, handout dispensed, and patient instructed to perform twice daily. Recommended starting a course of NSAIDs with the patient, RX diclofenac gel. Discussed proper shoe gear with the patient and recommended over the counter inserts. Pending Test Test Name Order Date INJ TENDON SHEATH/LIGAMENT/FASCIA 2023 Next Appt Details Follow Up: 4 Weeks, Reason: Provider Name:VIVIAN MILLER, 02/11/2024 10:00:00 AM, [address] [facility] [address], [place], [address], MEDICATIONS ADMINISTERED Medication Instructions Date of Administration Dosage Notes dexAMETHasone Sod Phosphate PF 01/12/2024 0.5 m L Kenalog 01/12/2024 0.5 mL Progress Notes * Avelino DOVEOB: 3 (83 yo F)Acc No.[id number]:01/12/2024 Consult note Patient:??Olena DOVE Provider:??Vivian Miller DPM :1940?Age:83 Y?Sex:Fe male Date:01/12/2024 Phone: Address:[address] [address], [phone] Pcp:Prosper Fitzpatrick Subjective: * Chief Complaints: * ?Right leg and heel demetra n * HPI: ?Constitutional:? This 83 y/o female presents to my office with a complaint of right foot/heel pain since October 2023. She states that she has flare-ups of plantar fasciitis in both feet. She states that it happens periodically. She will usually change her shoes and stretch, and then the pain will go away. However, about 2 weeks ago, she fell and sprained her right ankle. She went to the emergency room and they took x-rays. She was put into an Aircast, but she could not tolerate it. She states now the pain is more in the back of her heel and leg. She states there is pain when walking and a burning sensation when sitting or when pressure is applied to the back of the heel. She has been stretching, but this seems to be making the pain worse. 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 She has no other foot complaints this visit. Allergies and medical history reviewed. * ROS:?GENERAL: Pt denies nausea, fever, vomiting, chills, or shortness of breath. Pt in NAD. ALLERGY: patient denies any new allergy HEME/ONC: patient denies any bleeding or clotting disorders CARDIOLOGY: pt denies chest pain, palpitations LUNGS: pt denies shortness of breath ABDOMEN: patient denies any bloating, abdominal pain, or swelling MUSCULOSKELETAL: See HPI, patient also has right knee and hip pain SKIN: see HPI, otherwise no lesions, rash or itching NEURO: No persistent headache, weakness or numbness PSYCH: patient denies any current anxiety or depression The remainder of the review of systems is noncontributory. * Medical History:?? * Surgical History:??lumpectom y, right breast melanoma resection, left shoulder tubal ligation thyroidectomy * Hospitalization/Major Diagno stic Procedure:??vaginal delivery (girl) 1961vaginal delivery (boy) 1964vaginal delivery (girl) 1966thyroidectomy * Family History:??Mother: dec [place], [place], acute.??Siblings: brother- lung cancersister- hypertension, sudden age 63.??1 son(s) , 2 daughter(s) - healthy. .?? * Social History:?tobacco: never alcohol: never. * Medications:??TakingClobetas ol Propionate 0.05 % Cream 1 application Externally Twice a day Triamcinolone Acetonide 0.1 % Cream 1 application Externally Two times a Week rOPINIRole HCl 0.25 MG Tablet 1 tablet 1 to 3 hours before bedtime Orally Once a day Simvastatin 20 MG Tablet 1 tablet in the evening Orally Once a day Sertraline HCl 50 MG Tablet 1 tablet Orally Once a day , Notes to Pharmacist: 75MGPrimidone 50 MG Tablet 1 tablet Orally Three times a day Multivitamin - Tablet 1 tablet Orally Once a day Meloxicam 15 MG Tablet 1 tablet Orally Once a day Levothyroxine Sodium 50 MCG Tablet 1 tablet in the morning on an empty stomach Orally Once a day Gabapentin 400 MG Capsule 1 capsule Orally Twice a day amLODIPine Besylate 5 MG Tablet 1 tablet Orally Once a day Taking Clobetasol Propionate 0.05 % Cream 1 application Externally Twice a day Taking Triamcinolone Acetonide 0.1 % Cream 1 application Externally Two times a Week Taking rOPINIRole HCl 0.25 MG Tablet 1 tablet 1 to 3 hours before bedtime Orally Once a day Taking Simvastatin 20 MG Tablet 1 tablet in the evening Orally Once a day Taking Sertraline HCl 50 MG Tablet 1 tablet Orally Once a day , Notes to Pharmacist: 75MGTaking Primidone 50 MG Tablet 1 tablet Orally Three times a day Taking Multivitamin - Tablet 1 tablet Orally Once a day Taking Meloxicam 15 MG Tablet 1 tablet Orally Once a day Taking Levothyroxine Sodium 50 MCG Tablet 1 tablet in the morning on an empty stomach Orally Once a day Taking Gabapentin 400 MG Capsule 1 capsule Orally Twice a day Taking amLODIPine Besylate 5 MG Tablet 1 tablet Orally Once a day Not-TakingZyrTEC 10 MG Tablet Chewable 1 tablet Orally Once a day Propranolol HCl 10 MG Tablet 1 tablet on an empty stomach Orally every 12 hrs LORazepam 0.5 MG Tablet 1 tablet at bedtime as needed Orally Once a day Medication List reviewed and reconciled with the patientNot-Taking ZyrTEC 10 MG Tablet Chewable 1 tablet Orally Once a day Not-Taking Propranolol HCl 10 MG Tablet 1 tablet on an empty stomach Orally every 12 hrs Not-Taking LORazepam 0.5 MG Tablet 1 tablet at bedtime as needed Orally Once a day Medication List reviewed and reconciled with the patient * Allergies:??N.K.D.A.no[Aller gies Verified] Objective: * Vitals:??Wt: 190.1 lbs, Ht: 4ft 11in, BMI: 38.39 Index, HR: 70 /min, Temp: 96.9 F, RR: 16 /min, Ht-cm: 149.86, Wt-k.23 kg. * Examination: ?General Examination: ?GENERAL: Patient appears well nourished, with NAD. ?VASCULAR: Dorsalis pedis pulses are 2/4 bilaterally and Posterior tibial pulses are 1/4 bilaterally. Capillary filling time within normal limits the digits. No pallor on elevation or rubor on dependency. Varicosities and swelling of the lower legs. Denies rest pain or claudication pain. Each foot temperature is within normal limits. ?NEUROLOGICAL: Sharp/dull sensation intact bilaterally, position sense intact bilaterally to the tibial tuberosity. ?ORTHOPEDIC: Good muscle strength 4+/5 of all flexors and extensors. Dorsi flexion of ankle ,0 degrees, plantar flexion WNL. No muscle atrophy. Pain on palpation of the Achilles tendon starting at the proximal watershed area and extending to its insertion of the right foot, mild pain on compression of the right heel, pain on palpation of the plantar right heel. Pain on dorsiflexion of the right foot. No palpable gap or weakness of the right Achilles on examination today. ?DERMATOLOGICAL: No masses, openings, or skin lesions noted. Normal skin temperature, normal skin turgor. ?BIOMECHANICS: STJ ROM limited, MTJ ROM limited, 1st MPJ ROM limited. On weight-bearing, pes planus. ?SHOES: sneakers. Therapeutic Interventions: Assessment: * Assessment: 1.??Achilles tendinitis of r ight lower extremity - M76.61 (Primary)??2.??Plantar fasciitis of right foot - M72.2??3.??Pain in right foot - M79.671?? Plan: * Treatment: 2.??Plantar fasciitis of rig ht foot?Procedure: INJ TENDON SHEATH/LIGAMENT/FASCIA Notes: Consent was reviewed and signed by the patient for a steroid injection into the right plantar fascia. Pt agreed. 3cc total steroid injection was given into the right foot. Pt tolerated well. Post-Injection instructions were given to the patient. Pt instructed to ice/elevate the foot tonight. Discussed the pathology of plantar fasciitis, what that means and how it affects the patient's ADL. Reviewed stretching and icing exercises with the patient, handout dispensed, and patient instructed to perform twice daily. Recommended starting a course of NSAIDs with the patient, RX diclofenac gel. Discussed proper shoe gear with the patient and recommended over the counter inserts. ? 3.??Others?? Start Diclofenac Sodium Gel, 1 %, 1 gm to the right foot and ankle, Externally, twice daily, 30 days, 60, Refills 1.? * Procedures:?Procedure: The right foot was prepped and draped appropriately. The area was cleansed with an iodine solution. Ethyl chloride spray was then utilized to topically anesthetize the skin. 3cc steroid injection consisting of 1cc of lidocaine 1% plain, 1cc of 0.5% Marcaine Plain, 1/2cc of Decadron 4mg, and 1/2cc of Kenalog 40% was injected into the right plantar fascia. Pt tolerated the procedure well. All bleeding was stopped with pressure and a band-aid was applied. ? * Therapeutic Injections:? Dexamethasone : 0.5 mL (Dose No:1) given by Sreekanth SCHWARZP.M (Plantar fasciitis of right foot, Pain in right foot)? Kenalog : 0.5 mL (Dose No:1) given by Sreekanth SCHWARZP.M (Plantar fasciitis of right foot, Pain in right foot) * Procedure Codes:?? INJ TENDON SHEATH/LIGAMENT/FASCIA, Modifiers: RT J1100 INJ DEXAMETHASONE SODIM PHOSHATE 1 [id number] INJ TRIAMCINOLONE ACETONIDE 10 MG * Follow Up:??4 Weeks * Billing Information: * Visit Code:?? 03632 Office Visit, New Pt., Level 3. Modifiers: 25 * Procedure Codes:?? 95202 INJ TENDON SHEATH/LIGAMENT/FASCIA. Modifiers: RT J1100 INJ DEXAMETHASONE SODIM PHOSHATE 1 MG. J3301 INJ TRIAMCINOLONE ACETONIDE 10 MG. * Sign off status: Completed true * Provider:??Vivian Miller DPM Date: ??01/12/2024 History and Physical Notes * HPI (History of Present Illness) Category Sub-Category Detail Notes Category Not es Constitutional This 83 y/o f manuel presents to my office with a complaint of right foot/heel pain since October 2023. She states that she has flare-ups of plantar fasciitis in both feet. She states that it happens periodically. She will usually change her shoes and stretch, and then the pain will go away. However, about 2 weeks ago, she fell and sprained her right ankle. She went to the emergency room and they took x-rays. She was put into an Aircast, but she could not tolerate it. She states now the pain is more in the back of her heel and leg. She states there is pain when walking and a burning sensation when sitting or when pressure is applied to the back of the heel. She has been stretching, but this seems to be making the pain worse. 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 She has no other foot complaints this visit. Allergies and medical history reviewed. Examination Category Sub-Category Detail Notes Category Not es General Examination GENERAL: Patient appears well nourished, with NAD. VASCULAR: Dorsalis pedis pulses are 2/4 bilaterally and Posterior tibial pulses are 1/4 bilaterally. Capillary filling time within normal limits the digits. No pallor on elevation or rubor on dependency. Varicosities and swelling of the lower legs. Denies rest pain or claudication pain. Each foot temperature is within normal limits. NEUROLOGICAL: Sharp/dull sensation intact bilaterally, position sense intact bilaterally to the tibial tuberosity. ORTHOPEDIC: Good muscle strength 4+/5 of all flexors and extensors. Dorsi flexion of ankle ,0 degrees, plantar flexion WNL. No muscle atrophy. Pain on palpation of the Achilles tendon starting at the proximal watershed area and extending to its insertion of the right foot, mild pain on compression of the right heel, pain on palpation of the plantar right heel. Pain on dorsiflexion of the right foot. No palpable gap or weakness of the right Achilles on examination today. DERMATOLOGICAL: No masses, openings, or skin lesions noted. Normal skin temperature, normal skin turgor. BIOMECHANICS: STJ ROM limited, MTJ ROM limited, 1st MPJ ROM limited. On weight-bearing, pes planus. SHOES: sneakers
--- OUTSIDE RECORDS SUMMARY | 2024-02-04 02:37 | XMS_ITS ---
Author Name [facility] Organization Unknown Results Test Name/Text Value Interpretation Date Range Source ICD-10 CODES Normal [id number] [facility]CON[facility] LAB AP GROSS DESCRIPTION Received in formalin. Dimensions 3 x 3 x 4 mm, and submitted in 1 cassette. Also received is a vial of tissue transport medium (Solairedirect) containing a biopsy specimen measuring 3 x 2 x 4 mm. Tissue was washed in phosphate buffered saline and then embedded in OCT for immunofluorescent studies. Tissue was frozen, cut at 5 microns, and stained with fluorescein-labeled antibody to human IgG, IgM, IgA, C3 and fibrinogen. Normal [id number] [facility] LAB AP CLINICAL INFORMATION Well-demarcated erythematous edematous plaques with pinpoint vesicles and mild erosions on the face, neck, arms and legs, with isolated area of well-defined erythema and clustered vesicles (this was where the rash originated); DDx: dermatitis unspecified vs contact dermatitis vs other vs hypersensitivity reaction vs drug eruption vs BP vs disseminated zoster Normal [id number] [facility]
--- OUTSIDE RECORDS SUMMARY | 2024-02-04 02:37 | XMS_ITS | Patient Health Record ---
Author Organization [facility] Address [address] [place] [address] Care Team Providers Care Molding Engineer Name Role Phone Shaka Segovia MD Primary Care Provider Unavaila Jem Carver Unavailable [phone] Reason For Referral No Information Medications Medication SIG (Take, Route, Frequency, Duration) Notes Start Date End Date Status Physical Therapy . . . 2-3x/week for 3-4 weeks 01/2019 Active Levothyroxine Sodium Active Gabapentin 400 MG 1 capsule Orally Twi ce a day Active Propranolol HCl Acti ve Night Splint AFO - L1930 as directed 06/04/2017 Active Simvastatin 20 MG 1 tablet in the even ing Orally Once a day Active Sertraline HCl 25 MG 1 tablet Orally Once a day Active Vitamin B 12 Active Multivitamin Active Primidone 50 MG Orally Acti ve amLODIPine Besylate 5 MG Orally Active Social History Tobacco Use: Social History Observation Description Date Details (start date - stop date) Never Smoker NA - NA Tobacco Use/Smoking Question Answer Notes Are you a: nonsmoker Additional Findings: Tobacco Non-User Current no n-smoker Alcohol Screen Question Answer Notes Did you have a drink containing alcohol in the p ast year? No Points 0 Interpretation Negative Tobacco use other than smoking: Question Answer Notes Are you an other tobacco user? No Encounters Encounter Location Date Provider Diagnosis [facility] [address] [place] [address] 10/16/2023 Jem Johnson [facility] [address] [place] [address] 12/11/2023 Jem Johnson [facility] [address] [place] [address] 01/20/2024 Jem Johnson Plan Of Treatment Pending Test Test Name Order Date X ray : Foot, left 2V 06/04/2017 X ray : Foot, right 2V 06/04/2017 X ray : Foot, left 3V 08/05/2018 X ray : Foot, right 3V 08/05/2018 X ray : Foot, right 3V 01/17/2014 54729,[id number] TENDON SHEATH/LIGAMENT 0 08/05/2018 00504, J0702- Neuroma/Injection 01/18/20 14 65811, J0702- Neuroma/Injection 05/03/19 15 75495, J0702- Neuroma/Injection 07/14/19 15 Insurance Providers Payer Name Payer Address Payer Phone Subscriber Number Group Number Insured Name Patient Relationship to Insured Coverage Start Date Coverage End Date Medicare National [employer] [address] [facility] [place] [address] [id number] Olena Matthews Self - patient is the insured [employer] [address] [place] [address] [phone] [id number] Olena Matthews Self - patient is the insured Medical (General) History Medical History History ICD Code Thyroid disorder Measles Mumps Chicken pox Surgical History Surgery Date(Month/Year) lumpectomy 01/2004
--- OUTSIDE RECORDS SUMMARY | 2024-02-04 02:37 | XMS_ITS ---
Author Organization [facility] Address [address] [place] [address] Care Team Providers Care Blanket Maker Name Role Phone Shaka Segovia MD Primary Care Provider Unavaila Jem Carver [phone] REASON FOR VISIT EARLY BREASTFEEDING CARE SPECIALIST ppwk resent Encounters Encounter Location Date Provider Diagnosis [facility] [address] [place] [address] 12/11/2023 Jem Johnson Plan Of Treatment No Information Progress Notes * BYRONMayelaeDOB: 3 (83 yo F)Acc No.[id number]:12/11/2023 Patient:?Olena Matthews :1940???Age:83 Y???Sex:Female Address:[address] [address], [place], [address] * true * Date:? Generated for Printi ng/Facaing/eTransmitting on:?02/04/2024 02:36 AM EST
--- OUTSIDE RECORDS SUMMARY | 2024-02-04 02:37 | XMS_ITS ---
Author Organization [facility] Address [address] [place] [address] Care Team Providers Care President Educational Institution Name Role Phone Shaka Segovia MD Primary Care Provider UnavailJem Adler [phone] REASON FOR VISIT ON Encounters Encounter Location Date Provider Diagnosis [facility] [address] [place] [address] 10/16/2023 Jem Johnson Plan Of Treatment No Information Progress Notes * RYDERAKASHMayela BENNETTeDOB: 3 (82 yo F)Acc No.[id number]:10/16/2023 Patient:?Olena Matthews :1940???Age:82 Y???Sex:Female [address] [address], [place], [address] * true * Date:? Generated for Maryi lamar/Eneida/eTransmitting on:?02/04/2024 02:36 AM EST
--- OUTSIDE RECORDS SUMMARY | 2024-02-04 02:37 | XMS_ITS | Patient Health Record ---
Author Organization [facility] Address [address] [facility] [address] [place] [address] Care Team Providers Care Manager Administrative Name Role Phone Prosper Fitzpatrick Primary Care Provider STELLA Leyva Unavailable [phone] ALLERGIES No Known Allergies REASON FOR REFERRAL No Information MEDICATIONS Medication SIG (Take, Route, Frequency, Duration) Notes Start Date End Date Status Triamcinolone Acetonide 0.1 % 1 application Externally Two times a Week Active Clobetasol Propionate 0.05 % 1 application Externally Twice a day Active ZyrTEC 10 MG 1 tablet Orally Once a day Not-Taking rOPINIRole HCl 0.25 MG 1 tablet 1 to 3 h ours before bedtime Orally Once a day Active Sertraline HCl 50 MG 1 tablet Orally Onc e a day 75MG Active Simvastatin 20 MG 1 tablet in the even ing Orally Once a day Active Primidone 50 MG 1 tablet Orally Thre e times a day Active Propranolol HCl 10 MG 1 tablet on an emp ty stomach Orally every 12 hrs Not-Taking Meloxicam 15 MG 1 tablet Orally Once a day Active Multivitamin - 1 tablet Orally Once a day Active Levothyroxine Sodium 50 MCG 1 tablet in the morning on an empty stomach Orally Once a day Active LORazepam 0.5 MG 1 tablet at bedtime as needed Orally Once a day Not-Taking amLODIPine Besylate 5 MG 1 tablet Orally Once a day Active Diclofenac Sodium 1 % 1 gm to the right foot and ankle Externally twice daily for 30 days 01/12/2024 Active Gabapentin 400 MG 1 capsule Orally Twi ce a day Active PROBLEMS Problem Type ICD Code Onset Dates Problem Status W/U Status Risk SNOMED Code Notes Problem Plantar fasciitis of right foot (M72.2) Active confirmed [id number] VITAL SIGNS Heart Rate 70 /min 01/12/2024 Temperature 96.9 degrees Fahrenheit 01/12/2024 Respiratory Rate 16 /min 01/12/2024 Height 4ft 11in in 01/12/2024 Weight 190.1 lbs 01/12/2024 BMI 38.39 kg/m2 01/12/2024 PROCEDURES Procedure Date Ordered Date Performed Result Body Sit e INJ TENDON SHEATH/LIGAMENT/FASCIA 01/12/2024 N/ A Encounters Encounter Location Date Provider Diagnosis [facility] [address] [facility] [address] [place] [address] 01/12/2024 STELLA SOARES Achilles tendinitis of right lower extremity M76.61 ; Plantar fasciitis of right foot M72.2 and Pain in right foot M79.671 ASSESSMENTS Encounter Date Diagnosis Assessment Notes Treatment Notes Treatment Clinical Notes Section Notes 01/12/2024 Plantar fasciitis of right foot (ICD-10 [...] and recommended over the counter inserts. 01/12/2024 Achilles tendinitis of right lower extremity [...] is in agreement with this plan. 01/12/2024 Pain in right foot (ICD-10 - M79.671) PLAN OF TREATMENT Pending Test Test Name Order Date INJ TENDON SHEATH/LIGAMENT/FASCIA 2023 Next Appt Details Provider Name:STELLA SOARES, 02/11/2024 10:00:00 AM, [address] [address], [place], [address], Insurance Providers Payer Name Payer Address Payer Phone Subscriber Number Group Number Insured Name Patient Relationship to Insured Coverage Start Date Coverage End Date [employer] of [place] [address] [place] [phone] [id number] Olena Matthews Self - patient is the insured Medex [facility] [address] [place] [phone] [id number] Olena Matthews Self - patient is the insured MEDICATIONS ADMINISTERED Medication Instructions Date of Administration Dosage Notes dexAMETHasone Sod Phosphate PF 01/12/2024 0.5 m L Kenalog 01/12/2024 0.5 mL MEDICAL (GENERAL) HISTORY Medical History History ICD Code anxiety genital herpes Graves' disease breast cancer melanoma hyperlipidemia hypertension hypothyroidism impaired fasting glucose insomnia limb pain major depressive disorder, recurrent epi sode osteopenia tremor, essential COVID vaccinated X 5 Surgical History Surgery Date(Month/Year) lumpectomy, right breast melanoma resection, left shoulder tubal ligation thyroidectomy Hospitalization History Reason Date(Month/Year) vaginal delivery (girl) 1965 vaginal delivery (boy) 1963 vaginal delivery (girl) 1961 thyroidectomy
== END 2024-01-29 14:40 | disposition home or self-care (01) ==
PROVIDERS: PCP Physician Assistant Medical; Visit Provider Physician Assistant Medical
DX: G25.0 Essential tremor (principal); R41.89 Other symptoms and signs involving cognitive functions and awareness; G47.33 Obstructive sleep apnea (adult) (pediatric)
CPT/HCPCS: 99213

== ENCOUNTER → 2024-01-29 13:37 | Outpatient (BNVA) | payer MEDICARE, SELFPAY | PROVIDERS: PCP Physician Assistant Medical; Visit Provider Physician Assistant Medical | DX: G25.0 Essential tremor (principal); R41.89 Other symptoms and signs involving cognitive functions and awareness; G47.33 Obstructive sleep apnea (adult) (pediatric) | CPT/HCPCS: 99212 ==

== ENCOUNTER 2024-04-27 09:40 | Outpatient (AMB) | payer MEDICARE, SELFPAY ==
[2024-04-27 09:43] VITALS: BP 140/84; PULSE 67; O2SAT 97
--- NOTE | 2024-04-27 09:43 | A.OFFVIS_ITS ---
Vital Signs 04/27/24 09:43 Height 5 ft 6 in BP 140/84 H Blood Pressure Location Rt brachial Position Sitting Pulse 67 Pulse Source Pulse Oximeter Pulse Oximetry (%) 97 Oxygen Delivery Method Room Air Intake Visit Reasons: 3m follow up Intake Note: Patient presents for 3 month follow up. MRI on file done on 01/08/24. With Primadone still getting lot of tremors. Allergies No Known Allergies Allergy (Verified 04/27/24 09:47) HPI Comments Details: 83-yr-old female presents for f/u visit- pt last seen Nov 2023 for Essential t remors. Interim Medical History: Ankle sprain, Jan 04, 2024, missed a step much better now. R. Achilles deltoid, ankle boot on r. foot. She was trialed on ropinirole 0.25 mg TID and developed an adverse reaction, hives. 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 Her rash improved after several months. She is taking Promidone - TID, and says it has not improved her symptoms. She is taking 100mg of Sertraline for anxiety now, her tremors worsen with increased anxiety. She tried CD-LD 25-100mg and it made her feel off balance, as if she would fall when she stood up. She notices increased tremors, internally, especially at night and in voice, hand and head. Reviewed MRI results with patient today. ADL's: Ind Swallowing: No issues Drooling: Denies Orthostatic lightheadedness: Denies- her home BPs are normal. Constipation: Occasional Urinary symptoms: No issues Tremor: as noted above. Dyskinesia: Denies Stiffness: related to arthritis. Gait changes: Usually ok, a bit more difficult d/t recent hip/knee issues. Freezing: Denies Falls: Denies Mood: Had a bout of depression earlier this year, lost 2 of her close friends this year. Hallucinations: Denies Memory: More difficulty remembering appointments, her daughter Stephy helps her with ADLs. Socializes. Has a scrabble group once a week. Sleep: she falls asleep in 20 min and using a music fitz now which helps her to fall asleep easily. Exercise: Unable due to her r. foot deltoid tendon injury. [facility] Medical History Obstructive sleep apnea hypopnea, mild Arthritis Surgical History Hx of breast surgery Family History Mother Hypotension Father No known health problems Social History Alcohol intake: never Patient Tobacco Use Status: Never used Tobacco Physical Exam Vital Signs: Last Vital Signs Pulse 67 04/27/24 09:43 BP 140/84 H 04/27/24 09:43 Pulse Ox 97 04/27/24 09:43 Oxygen Delivery Method Room Air 04/27/24 09:43 Const General: cooperative and no acute distress Resp Effort & Inspection: normal respiratory effort and able to speak in complete sentences Neuro Other: General: A&O x's 3 Expression: Intact Voice: Tremors Tremor: BUE postural tremor, action tremors L>R,, head tremor, lower jaw tremors Foot taps: Decreased Gait: Slow to stand, decreased arm swing, good posture Psych: Pleasant affect Orientation What is the (year) (season) (date) (day) (month)?: year, season, date, day and month Where are we (state) (county) (town or city) (hospital) (floor)?: state, county, town or city, hospital/clinic and floor Registration Name of 3 unrelated objects clearly and slowly, then ask patient to repeat all 3 of them. (1st repeat determines score. Make sure they can repeat all three): object 1, object 2 and object 3 Attention & Calculation (CHOOSE ONE) Spell WORLD backwards (DLROW): 4 letters Recall Ask patient to repeat the 3 items from question #3.: object 1, object 2 and object 3 Language Show patient a wristwatch & ask what it is. Repeat for pencil.: watch and pencil Ask the patient to repeat the phrase 'No ifs, ands, or buts' after you.: correct Ask the patient to 'take a piece of paper with their right hand' 'fold paper in half' 'place paper on floor': take paper in right hand, fold paper in half and place paper on floor Print the sentence 'CLOSE YOUR EYES' on a piece. If patient actually closes eyes then score.: followed written direction Give patient a blank piece of paper & ask to write a sentence. Score if it contains a noun & verb.: sentence contains subject and verb Score Score: 28 Results Reviewed Results Reviewed: MRI 12/2023 reviewed results from MRI with Patient and daughter today. MR/MR head/brain wo con IMPRESSION: 1. No acute intracranial abnormalities. 2. Global cerebral atrophy and chronic microangiopathy. MMSE 2830 Assessment & Plan Assessment & Plan (1) Essential tremor: Comment: predominantly voice tremors Code(s): G25.0 - Essential tremor Category: Medical (2) Cognitive changes: Code(s): R41.89 - Other symptoms and signs involving cognitive functions and awareness Category: Medical (3) Obstructive sleep apnea hypopnea, mild: Code(s): G47.33 - Obstructive sleep apnea (adult) (pediatric) Category: Medical (4) Essential and other specified forms of tremor: Code(s): G25.0 - Essential tremor; G25.2 - Other specified forms of tremor Category: Medical Plan For Essential Tremor Trialed her on and Stopped CD-LD 25-100mg- not tolerated. Stop Ropinirole 0.25mg po tid- adverse reaction within 2 weeks Hives Trialed Propranolol in the past but had bradycardia For now will continue Primidone Mysoline 50 mg tid Gabapentin 400mg bid. For cognition Referred for neuro cognitive therapy- Jan 28 2025, pending evaluation and results. Will consider decreasing Gabapentin in the future. Will Consider Botox for vocal tremor after ENT consult. Will consider changing medications from Primidone 50mg TID to Topiramate or a different class of medication at next f/u. Medications: New pyridoxine (vitamin B6) 100 mg PO DAILY 30 tabs 3RF Essential Tremors MDD 100mg G25.0 - Essential tremor, G25.2 - Other specified forms of tremor Patient Instructions: Sleep Hygiene emphasized. Stay socially engaged with friends and family, continue board game nights, puzzles and painting. Monitor and manage good control of HTN Call with any questions or send a portal message as needed. Coding Level of Care Code Est Pt Level 4 (82017) Diagnoses Essential tremor G25.0 Cognitive changes R41.89 Obstructive sleep apnea hypopnea, mild G47.33 Essential and other specified forms of tremor G25.0; G25.2 Time Spent (min) 50 Comment
--- OUTSIDE RECORDS SUMMARY | 2024-04-27 10:57 | XMS_ITS ---
Author Organization [facility] Address [address] [place] [address] Care Team Providers Care Conche Operator Name Role Phone Shaka Segovia MD Primary Care Provider Unavaila Jem Carver Unavailable [phone] Encounters Encounter Location Date Provider Diagnosis [facility] [address] [place] [address] 02/10/2024 Jem Johnson Plan Of Treatment No Information Progress Notes * Mayela MATTHEWSeDOB: 3 (83 yo F)Acc No.[id number]:02/10/2024 Progress Notes Patient:Olena WASHINGTON Provider:?Jem Johnson DPM :1940???Age:83 Y???Sex:Female D ate:02/10/2024 Address:[address] [place] [address], [id number] Pcp:Shaka Segovia MD Subjective: * Chief Complaints: * ??? * Medical History:? Objective: * Vitals:? Assessment: Plan: * Treatment: * Images: * The named appointment provid er may or may not be the originator of this progress note, and it is not deemed complete until electronically signed by the appointment provider. Sign off status: Pending * Provider:?Jem Johnson DPM Date:?2023 Generated for Printi ng/Facaing/eTransmitting on:?04/27/2024 10:56 AM EST
--- OUTSIDE RECORDS SUMMARY | 2024-04-27 10:57 | XMS_ITS ---
Author Organization [facility] Address [address] [place] [address] Care Team Providers Care Merchant Mariner Name Role Phone Prosper Fitzpatrick Primary Care Provider VIVIAN Leyva Unavailable [phone] Allergies No Known Allergies REASON FOR VISIT MRI f/u with walking boot fitting Medications Medication SIG (Take, Route, Frequency, Duration) Notes Start Date End Date Status ZyrTEC 10 MG 1 tablet Orally Once a day Not-Taking Propranolol HCl 10 MG 1 tablet on an emp ty stomach Orally every 12 hrs Not-Taking LORazepam 0.5 MG 1 tablet at bedtime as needed Orally Once a day Not-Taking Simvastatin 20 MG 1 tablet in the even ing Orally Once a day Active Diclofenac Sodium 1 % 1 gm to the right foot and ankle Externally twice daily for 30 days 01/12/2024 Not-Taki ng amLODIPine Besylate 5 MG 1 tablet Orally Once a day Active Gabapentin 400 MG 1 capsule Orally Twi ce a day Active Triamcinolone Acetonide 0.1 % 1 application Externally Two times a Week Not-Taking Clobetasol Propionate 0.05 % 1 application Externally Twice a day Not-Takin g rOPINIRole HCl 0.25 MG 1 tablet 1 to 3 h ours before bedtime Orally Once a day Not-Taking Levothyroxine Sodium 50 MCG 1 tablet in the morning on an empty stomach Orally Once a day Active Sertraline HCl 100 MG 1 tablet Orally On ce a day Active Primidone 50 MG 1 tablet Orally Thre e times a day Active Multivitamin - 1 tablet Orally Once a day Active Meloxicam 15 MG 1 tablet Orally Once a day Active Vital Signs Weight 192.7 lbs 04/26/2024 Height 4ft 11in in 04/26/2024 BMI 38.92 kg/m2 04/26/2024 Heart Rate 63 /min 04/26/2024 Temperature 96.9 degrees Fahrenheit 04/27/19 25 Respiratory Rate 12 /min 04/26/2024 Encounters Encounter Location Date Provider Diagnosis [facility] [address] [place] [address] 04/26/2024 VIVIAN MILLER Achilles tendinitis of right lower extremity M76.61 and Pain in right foot M79.671 Assessments Encounter Date Diagnosis (ICD Code) Assessment Notes Treatment Notes Treatment Clinical Notes Section Notes 04/26/2024 Achilles tendinitis of right lower extremity (ICD-10 - M76.61) This is an outpatient visit for evaluation and management of an established patient, which required appropriate review of pertinent medical history, review of any previous imaging, review of all previous records, and examination and decision-making. Time was 30 minutes spent in review of all these facets including face to face discussion with the patient regarding my findings and in discussion of a current and future treatment plan. I reviewed the results of the right ankle MRI. She has severe Achilles tendinitis, inflammation of the posterior ankle, and flexor tendinitis on the right side. I reviewed the images with the patient in the office today. We discussed that she would like to avoid surgery and the brace did not help. I am recommending immobilization of the right ankle. She was fitted and a medium short leg pneumatic walking boot was dispensed in the office today. She is not to wear the boot while driving, and she can take the boot off to sleep and shower. She is to use the boot when standing or ambulating. We discussed using a cane for balance with the walking boot. I encouraged her to continue to rest the ankle. We discussed I usually like to immobilize the patient for 4-8 weeks. I would like to see her back in 4 weeks for a recheck. She is in agreement with this plan. 04/26/2024 Pain in right foot (ICD-10 - M79.671) Plan Of Treatment Treatment Notes Assessment Notes Achilles tendinitis of right lower extremity This is an outpatient visit for evaluation and management of an established patient, which required appropriate review of pertinent medical history, review of any previous imaging, review of all previous records, and examination and decision-making. Time was 30 minutes spent in review of all these facets including face to face discussion with the patient regarding my findings and in discussion of a current and future treatment plan. I reviewed the results of the right ankle MRI. She has severe Achilles tendinitis, inflammation of the posterior ankle, and flexor tendinitis on the right side. I reviewed the images with the patient in the office today. We discussed that she would like to avoid surgery and the brace did not help. I am recommending immobilization of the right ankle. She was fitted and a medium short leg pneumatic walking boot was dispensed in the office today. She is not to wear the boot while driving, and she can take the boot off to sleep and shower. She is to use the boot when standing or ambulating. We discussed using a cane for balance with the walking boot. I encouraged her to continue to rest the ankle. We discussed I usually like to immobilize the patient for 4-8 weeks. I would like to see her back in 4 weeks for a recheck. She is in agreement with this plan. Next Appt Details Follow Up: 4 Weeks, Reason: Provider Name:VIVIAN MILLER, 05/28/2024 09:45:00 AM, [address], [address], Progress Notes * KRISTENLISSETTE LeydiallieeDOB: 3 (83 yo F)Acc No.[id number]:04/26/2024 Progress Note Patient:Olena WASHINGTON Provider:?Vivian Miller DPM :1940???Age:83 Y???Sex:Female D ate:04/26/2024 Phone: Address:[address] [place] [address], [place], [id number] Pcp:Prosper Fitzpatrick Subjective: * Chief Complaints: * ???MRI f/u with walking boot fitting * HPI: ???Constitutional:?This 83 y/o female returns to my office accompanied by her daughter in law?for a follow-up to right foot/heel/ankle pain. She is here to discuss the results of the right ankle MRI. She complains of burning heel pain and sensitivity around the heel. She has been using the diclofenac gel with limited improvement. She is not wearing the ankle brace much as she states she will sometimes feel more pain. She states she mainly feels the pain when she first starts walking after a period of rest. She has no other foot complaints this visit. * ROS:?GENERAL: Pt denies nausea, fever, vomiting, [...] review of systems is noncontributory. * Medical History:? * Surgical History:?lumpectomy , right breast melanoma resection, left shoulder tubal ligation thyroidectomy * Hospitalization/Major Diagno stic Procedure:?vaginal delivery (girl) 196vaginal delivery (boy) 1964vaginal delivery (girl) 1966thyroidectomy * Family History:?Mother: dece ased, ID, acute.?Siblings: brother- lung cancersister- hypertension, sudden age 63.?1 son(s) , 2 daughter(s) - healthy. .? * Social History:?tobacco: never alcohol: never. * Medications:?TakingSimvastat in 20 MG Tablet 1 tablet in the evening Orally Once a day Sertraline HCl 100 MG Tablet 1 tablet Orally Once a day Primidone 50 MG Tablet 1 tablet Orally [...] 1 tablet Orally Once a day Taking Simvastatin 20 MG Tablet 1 tablet in the evening Orally Once a day Taking Sertraline HCl 100 MG Tablet 1 tablet Orally Once a day Taking Primidone 50 MG Tablet 1 tablet Orally [...] Tablet 1 tablet Orally Once a day Not- TakingTriamcinolone Acetonide 0.1 % Cream 1 application Externally Two times a Week Clobetasol Propionate 0.05 % Cream 1 application Externally Twice a day rOPINIRole HCl 0.25 MG Tablet 1 tablet 1 to 3 hours before bedtime Orally Once a day Diclofenac Sodium 1 % Gel 1 gm to the right foot and ankle Externally twice daily ZyrTEC 10 MG Tablet Chewable 1 tablet Orally Once a day Propranolol HCl 10 MG Tablet 1 tablet on an empty stomach Orally every 12 hrs LORazepam 0.5 MG Tablet 1 tablet at bedtime as needed Orally Once a day Medication List reviewed and reconciled with the patientNot-Taking Triamcinolone Acetonide 0.1 % Cream 1 application Externally Two times a Week Not-Taking Clobetasol Propionate 0.05 % Cream 1 application Externally Twice a day Not-Taking rOPINIRole HCl 0.25 MG Tablet 1 tablet 1 to 3 hours before bedtime Orally Once a day Not-Taking Diclofenac Sodium 1 % Gel 1 gm to the right foot and ankle Externally twice daily Not-Taking ZyrTEC 10 MG Tablet Chewable 1 tablet Orally Once a day Not-Taking Propranolol HCl 10 MG Tablet 1 tablet on an empty stomach Orally every 12 hrs Not-Taking LORazepam 0.5 MG Tablet 1 tablet at bedtime as needed Orally Once a day Medication List reviewed and reconciled with the patient * Allergies:?N.K.D.A.no[Allerg ies Verified] Objective: * Vitals:?Wt: 192.7 lbs, Ht: 4 ft 11in, BMI: 38.92 Index, HR: 63 /min, Temp: 96.9 F, RR: 12 /min, Ht-cm: 149.86, Wt-k.41 kg. * Examination: ???General Examination: ???GENERAL: Patient appears well nourished, with NAD. VASCULAR: [...] muscle atrophy. Pain on palpation of the distal Achilles tendon starting at the proximal watershed area, no pain to its insertion of the right foot, no pain on compression of the right heel, no pain on palpation of the plantar right heel. Tenderness on dorsiflexion of the right foot. No palpable gap or weakness of the right Achilles on examination today. DERMATOLOGICAL: No masses, openings, or skin lesions noted. Normal skin temperature, normal skin turgor. BIOMECHANICS: STJ ROM limited, MTJ ROM limited, 1st MPJ ROM limited. On weight-bearing, pes planus. SHOES: sneakers. Assessment: * Assessment: 1.?Achilles tendinitis of formerly [facility] lower extremity - M76.61 (Primary)???2.?Pain in right foot - M79.671??? Plan: * Treatment: * Procedure Codes:?L4361 WALKI NG BOOT PNEUMATIC AND/OR VAC, Modifiers: RT * Follow Up:?4 Weeks * Billing Information: * Visit Code:? 67691 Office Visit, Est Pt., Level 4. * Procedure Codes:? L4361 WALKING BOOT PNEUMATIC AND/OR VAC. Modifiers: RT * Sign off status: Completed true * Provider:?Vivian Miller DPM Date:? 04/26/2024 Generated for Dai newton/Eneida/eTransmitting on:?04/27/2024 10:57 AM EST History and Physical Notes * HPI (History of Present Illness) Category Sub-Category Detail Notes Category Not es Constitutional This 83 y/o f emale returns to my office accompanied by her daughter in law for a follow-up to right foot/heel/ankle pain. She is here to discuss the results of the right ankle MRI. She complains of burning heel pain and sensitivity around the heel. She has been using the diclofenac gel with limited improvement. She is not wearing the ankle brace much as she states she will sometimes feel more pain. She states she mainly feels the pain when she first starts walking after a period of rest. She has no other foot complaints this visit. Examination Category Sub-Category Detail Notes Category Not [...] muscle atrophy. Pain on palpation of the distal Achilles tendon starting at the proximal watershed area, no pain to its insertion of the right foot, no pain on compression of the right heel, no pain on palpation of the plantar right heel. Tenderness on dorsiflexion of the right foot. No palpable gap or weakness of the right Achilles on examination today. DERMATOLOGICAL: No masses, openings, or skin lesions noted. Normal skin temperature, normal skin turgor. BIOMECHANICS: STJ ROM limited, MTJ ROM limited, 1st MPJ ROM limited. On weight-bearing, pes planus. SHOES: sneakers
--- OUTSIDE RECORDS SUMMARY | 2024-04-27 10:57 | XMS_ITS | Patient Health Record ---
Author Organization [facility] Address [address] [place] [address] Care Team Providers Care Equalizing Saw Operator Name Role Phone Shaka Segovia MD Primary Care Provider Unavaila Jem Carver Unavailable [phone] Reason For Referral No Information Medications Medication [...] No Encounters Encounter Location Date Provider Diagnosis [facility] [address] [place] [address] 10/16/2023 Jem Johnson [facility] [address] [place] [address] 12/11/2023 Jem Johnson [facility] [address] [place] [address] 01/20/2024 Jem Johnson Plan Of Treatment Pending Test Test Name Order Date X ray : Foot, left 2V 06/04/2017 X ray : Foot, right 2V 06/04/2017 X ray : Foot, left 3V 08/05/2018 X ray : Foot, right 3V 08/05/2018 X ray : Foot, right 3V 01/17/2014 30794,G6620-QUE TENDON SHEATH/LIGAMENT 0 08/05/2018 64412, J0702- Neuroma/Injection 01/18/20 14 04247, J0702- Neuroma/Injection 05/03/19 15 39464, J0702- Neuroma/Injection 07/14/19 15 Insurance Providers Payer Name Payer Address Payer Phone Subscriber Number Group Number Insured Name Patient Relationship to Insured Coverage Start Date Coverage End Date Medicare National [employer] [address] [place] [address] [id number] Olena Matthews Self - patient is the insured [employer] [address] [place] [address] [phone] [id number] Olena Matthews Self - patient is the insured Medical (General) History Medical History History ICD Code Thyroid disorder Measles Mumps Chicken pox Surgical History Surgery Date(Month/Year) lumpectomy 01/2004
--- OUTSIDE RECORDS SUMMARY | 2024-04-27 10:57 | XMS_ITS ---
Author Organization [facility] Address [address] [place] [address] Care Team Providers Care Ruling Machine Operator Name Role Phone Prosper Fitzpatrick Primary Care Provider STELLA Leyva Unavailable [phone] REASON FOR VISIT MRI results Encounters Encounter Location Date Provider Diagnosis [facility] [address] [facility] [address] [place] [address] 04/21/2024 STELLA SOARES Plan Of Treatment Next Appt Details Provider Name:STELLA SOARES, 05/28/2024 09:45:00 AM, [address] [facility] [facility] [address], [place], [address], Progress Notes * Mayela MATTHEWSJonahOB: 3 (83 yo F)Acc No.[id number]:04/21/2024 Patient:?Olena MATTHEWS :1940???Age:83 Y???Sex:Female Phone: Address:[address], [facility] [address], [place] [address] * true * Date:? Generated for Dai newton/Eneida/eTransmitting on:?04/27/2024 10:57 AM EST
--- OUTSIDE RECORDS SUMMARY | 2024-04-27 10:57 | XMS_ITS ---
Author Organization [facility] Address [address] [place] [address] Care Team Providers Care Martial Arts Instructor Name Role Phone Shaka Segovia MD Primary Care Provider Unavaila Jem Carver [phone] REASON FOR VISIT SPLICER HELPER ppwk resent Encounters Encounter Location Date Provider Diagnosis [facility] [address] [place] [address] 12/11/2023 Jem Johnson Plan Of Treatment No Information Progress Notes * BYRONMayelaeDOB: 3 (83 yo F)Acc No.[id number]:12/11/2023 Patient:?Olena Matthews :1940???Age:83 Y???Sex:Female Address:[address] [address], [place], [address] * true * Date:? Generated for Printi lamar/Eneida/eTransmitting on:?04/27/2024 10:57 AM EST
--- OUTSIDE RECORDS SUMMARY | 2024-04-27 10:57 | XMS_ITS | Patient Health Record ---
Author Organization [facility] Address [address] [facility] [address] [place] [address] Care Team Providers Care Retail Performance Specialist Name Role Phone NanetteProspre mayfield Primary Care Provider STELLA Leyva Unavailable [phone] Allergies No Known Allergies Results Component Value Reference Range Notes MRI : Lower Ext Joint W/O Co ntrast Reviewed date:04/22/2024 11:06:10 AM Interpretation: Performing Lab: Notes/Report: Reason For Referral No Information Medications Medication SIG (Take, Route, Frequency, Duration) Notes Start Date End Date Status amLODIPine Besylate 5 MG 1 tablet Orally Once a day Active Levothyroxine Sodium 50 MCG 1 tablet in the morning on an empty stomach Orally Once a day Active Gabapentin 400 MG 1 capsule Orally Twi ce a day Active Sertraline HCl 100 MG 1 tablet Orally On ce a day Active ZyrTEC 10 MG 1 tablet Orally Once a day Not-Taking Primidone 50 MG 1 tablet Orally Thre e times a day Active Propranolol HCl 10 MG 1 tablet on an emp ty stomach Orally every 12 hrs Not-Taking Multivitamin - 1 tablet Orally Once a day Active LORazepam 0.5 MG 1 tablet at bedtime as needed Orally Once a day Not-Taking Meloxicam 15 MG 1 tablet Orally Once a day Active Triamcinolone Acetonide 0.1 % 1 application Externally Two times a Week Not-Taking Clobetasol Propionate 0.05 % 1 application Externally Twice a day Not-Placido g rOPINIRole HCl 0.25 MG 1 tablet 1 to 3 h ours before bedtime Orally Once a day Not-Taking Simvastatin 20 MG 1 tablet in the even ing Orally Once a day Active Diclofenac Sodium 1 % 1 gm to the right foot and ankle Externally twice daily for 30 days 01/12/2024 Not-Takjackie newton Problems Problem Type SNOMED Code ICD Code Onset Dates Problem Status W/U Status Risk Notes Problem [id number] Plantar fasciitis of right foot (M72.2) Active confirmed Vital Signs Heart Rate 63 /min 04/26/2024 Temperature 96.9 degrees Fahrenheit 04/26/2024 Respiratory Rate 12 /min 04/26/2024 Height 4ft 11in in 04/26/2024 Weight 192.7 lbs 04/26/2024 BMI 38.92 kg/m2 04/26/2024 Procedures Procedure Date Ordered Date Performed Result Body Sit e INJ TENDON SHEATH/LIGAMENT/FASCIA 01/12/2024 N/ A Encounters Encounter Location Date Provider Diagnosis [facility] [address] [address] 01/12/2024 STELLA SOARES Achilles tendinitis of right lower extremity M76.61 ; Plantar fasciitis of right foot M72.2 and Pain in right foot M79.671 [facility] [address] [address] 02/11/2024 STELLA SOARES Achilles tendinitis of right lower extremity M76.61 ; Plantar fasciitis of right foot M72.2 and Pain in right foot M79.671 [facility] [address] [address] 04/02/2024 STELLA SOARES Achilles tendinitis of right lower extremity M76.61 and Pain in right foot M79.671 [facility] [address] [address] 04/26/2024 STELLA SOARES Achilles tendinitis of right lower extremity M76.61 and Pain in right foot M79.671 [facility] [address] [address] 04/21/2024 STELLA SOARES Assessments Encounter Date Diagnosis (ICD Code) Assessment [...] Patient is in agreement with this plan. 02/11/2024 Achilles tendinitis of right lower extremity (ICD-10 - M76.61) We discussed she still has some Achilles tendinitis of the right leg. I strongly encouraged the patient to continue to wear the ankle brace and use the diclofenac gel to the back of the ankle twice daily. We discussed the Achilles tendinitis can take 2-3 months to improve. I also would like her to start gentle stretching of the Achilles. Reviewed stretching and icing exercises with the patient, handout dispensed, and patient instructed to perform twice daily. We discussed the Achilles is not an area where I can inject without risking tearing or rupture. We discussed immobilization or physical therapy if no improvement by next visit. She is in agreement with this plan. 04/02/2024 Achilles tendinitis of right lower extremity (ICD-10 - M76.61) We discussed she still has Achilles tendinitis of the right leg. I strongly encouraged the patient to continue to wear the ankle brace and use the diclofenac gel to the back of the ankle twice daily. She notes worsening of the pain since her last visit. Her pain started in December and has limited improvement. She has tried the ankle brace, physical therapy, NSAIDs, and an injection. She did have x-rays taken at her PCP office with no significant findings. We discussed the Achilles is not an area where I can inject without risking tearing or rupture. I am leaving toward immobilization, but I would like further imaging prior to putting her in a walking boot. She has a burning pain in the heel, and I am concerned she may have a tear. I will order an MRI of the right ankle and I will contact the patient once I receive the results. The patient and her daughter are in agreement with this plan. 04/26/2024 Achilles tendinitis of right lower extremity [...] Pain in right foot (ICD-10 - M79.671) 04/02/2024 Pain in right foot (ICD-10 - M79.671) 01/12/2024 Pain in right foot (ICD-10 - M79.671) 02/11/2024 Plantar fasciitis of right foot (ICD-10 - M72.2) The plantar fasciitis is resolved. 02/11/2024 Pain in right foot (ICD-10 - M79.671) Plan Of Treatment Pending Test Test Name Order Date INJ TENDON SHEATH/LIGAMENT/FASCIA 2023 Next Appt Details Provider Name:STELLAMEERA SOARES, 05/28/2024 09:45:00 AM, [address], [address], Insurance Providers Payer Name Payer Address Payer Phone Subscriber Number Group Number Insured Name Patient Relationship to Insured Coverage Start Date Coverage End Date Medicare of [place] [address] [place] [address] [id number] Olena Matthews Self - patient is the insured Medex [facility] [address] [place] [address] [phone] [id number] Olnea Matthews Self - patient is the insured Medications Administered Medication Instructions Date of Administration Dosage Notes dexAMETHasone Sod Phosphate PF 01/12/2024 0.5 m L Kenalog 01/12/2024 0.5 mL Medical (General) History Medical History History ICD Code anxiety genital herpes Graves' disease breast cancer melanoma hyperlipidemia hypertension hypothyroidism impaired fasting glucose insomnia limb pain major depressive disorder, recurrent epi sode osteopenia tremor, essential COVID vaccinated X 5 Surgical History Surgery Date(Month/Year) lumpectomy, right breast melanoma resection, left shoulder tubal ligation thyroidectomy Hospitalization History Reason Date(Month/Year) thyroidectomy vaginal delivery (girl) 1965 vaginal delivery (boy) 1963 vaginal delivery (girl) 1961
--- OUTSIDE RECORDS SUMMARY | 2024-04-27 10:57 | XMS_ITS ---
Author Organization [facility] Address [address] [place] [address] Care Team Providers Care Personnel Worker Name Role Phone Shaka Segovia MD Primary Care Provider UnavailJem Adler [phone] REASON FOR VISIT cx ON 02/09 Encounters Encounter Location Date Provider Diagnosis [facility] [address] [place] [address] 01/20/2024 Jem Johnson Plan Of Treatment No Information Progress Notes * BYRONMayelaeDOB: 3 (83 yo F)Acc No.[id number]:01/20/2024 Patient:?Olena MATTHEWS :1940???Age:83 Y???Sex:Female Address:[address] [address], [place], [address] * true * Date:? Generated for Printi lamar/Eneida/eTransmitting on:?04/27/2024 10:56 AM EST
--- OUTSIDE RECORDS SUMMARY | 2024-04-27 10:58 | XMS_ITS ---
Author Organization [facility] Address [address] [facility] [address] [place] [address] Care Team Providers Care Court Clerk Name Role Phone Prosper Fitzpatrick Primary Care Provider VIVIAN Leyva Unavailable [phone] Allergies No Known Allergies Results Component Value Reference Range Notes MRI : Lower Ext Joint W/O Co ntrast Reviewed date:04/22/2024 11:06:10 AM Interpretation: Performing Lab: Notes/Report: REASON FOR VISIT 1 month f/u Medications Medication SIG (Take, Route, Frequency, Duration) Notes Start Date End Date Status rOPINIRole HCl 0.25 MG 1 tablet 1 to 3 h ours before bedtime Orally Once a day Not-Taking Diclofenac Sodium 1 % 1 gm to the right foot and ankle Externally twice daily for 30 days 01/12/2024 Not-Taki ng ZyrTEC 10 MG 1 tablet Orally Once [...] capsule Orally Twi ce a day Active amLODIPine Besylate 5 MG 1 tablet Orally Once a day Active Clobetasol Propionate 0.05 % 1 application Externally Twice a day Not-Takin g Triamcinolone Acetonide 0.1 % 1 application Externally Two times a Week Not-Taking Simvastatin 20 MG 1 tablet in the even ing Orally Once a day Active Sertraline HCl 100 MG 1 tablet Orally On ce a day Active Primidone 50 MG 1 tablet Orally Thre e times a day Active Multivitamin - 1 tablet Orally Once a day Active Vital Signs Weight 192.2 lbs 04/02/2024 Height 4ft 11in in 04/02/2024 BMI 38.82 kg/m2 04/02/2024 Heart Rate 68 /min 04/02/2024 Temperature 96.7 degrees Fahrenheit 04/02/19 25 Respiratory Rate 16 /min 04/02/2024 Encounters Encounter Location Date Provider Diagnosis [facility] [address] [facility] [address] [place] [address] 04/02/2024 VIVIAN RODGER Achilles tendinitis of right lower extremity M76.61 and Pain in right foot M79.671 Assessments Encounter Date Diagnosis (ICD Code) Assessment Notes Treatment Notes Treatment Clinical Notes Section Notes 04/02/2024 Achilles tendinitis of right lower extremity [...] daughter are in agreement with this plan. 04/02/2024 Pain in right foot (ICD-10 - M79.671) Plan Of Treatment Treatment Notes Assessment Notes Achilles tendinitis of right lower extremity We discussed she still has Achilles tendinitis [...] daughter are in agreement with this plan. Next Appt Details Follow Up: after MRI, Reason : Provider Name:VIVIAN MILLER, 05/28/2024 09:45:00 AM, [address] [facility], [facility] [address], [place], [address], Progress Notes * RYDERMayela MCLAUGHLINJonahOB: 3 (83 yo F)Acc No.[id number]:04/02/2024 Progress Note Patient:?RYDERAKASHOlena BENNETT Provider:?Vivian Miller DPM :1940???Age:83 Y???Sex:Female D ate:04/02/2024 Phone: Address:[address] [place] [id number] Pcp:Prosper Fitzpatrick Subjective: * Chief Complaints: * ???1 month f/u * HPI: ???Constitutional:?This 83 y/o female returns to my office accompanied by her daughter for a follow-up to right foot/heel/ankle pain. She states the improvement she had last visit is now gone after a tripping injury. She complains of burning heel pain and [...] (girl) 196vaginal delivery (boy) 1964vaginal delivery (girl) 1965thyroidectomy * Family History:?Mother: dece ased, [place], acute.?Siblings: brother- lung cancersister- hypertension, sudden age [...] * Allergies:?N.K.D.A.no[Allerg ies Verified] Objective: * Vitals:?Wt: 192.2 lbs, Ht: 4 ft 11in, BMI: 38.82 Index, HR: 68 /min, Temp: 96.7 F, RR: 16 /min, Ht-cm: 149.86, Wt-k.18 kg. * Examination: ???General Examination: ???GENERAL: Patient [...] sneakers. Assessment: * Assessment: 1.?Achilles tendinitis of ri t lower extremity - M76.61 (Primary)???2.?Pain in right foot - M79.671??? Plan: * Treatment: Notes: We discussed she still has Achilles tendinitis of the right leg. I strongly encouraged the patient to continue to wear the ankle brace and use the diclofenac gel to the back of the ankle twicedaily. She notes worsening of the pain since [...] tearing or rupture. I am leaving toward immobilization,but I would like further imaging prior to putting her in a walking boot. She has a burning pain in the heel, and I am concerned she may have a tear. I will order an MRI of the right ankle and I will contact the patient once I receive the results. The patient and her daughter are in agreement with this plan. ?? * Procedure Codes:? * Follow Up:?after MRI * Billing Information: * Visit Code:? 86691 Office Visit, Est Pt., Level 3. * Procedure Codes:? * Sign off status: Completed true * Provider:?Vivian Miller DPM Date:? 04/02/2024 Generated for Dai newton/Eneida/Radha on:?04/27/2024 10:57 AM EST History and Physical Notes * HPI (History of Present Illness) Category Sub-Category Detail Notes Category Not es Constitutional This 83 y/o f manuel returns to my office accompanied by her daughter for a follow-up to right foot/heel/ankle pain. She states the improvement she had last visit is now gone after a tripping injury. She complains of burning heel pain and [...]
== END 2024-04-27 10:56 | disposition home or self-care (01) ==
PROVIDERS: PCP Physician Assistant Medical; Visit Provider Physician Assistant Medical
DX: G25.0 Essential tremor (principal); R41.89 Other symptoms and signs involving cognitive functions and awareness; G47.33 Obstructive sleep apnea (adult) (pediatric); G25.2 Other specified forms of tremor
CPT/HCPCS: 99214

== ENCOUNTER → 2024-04-27 09:40 | Outpatient (BNVA) | payer MEDICARE, SELFPAY | PROVIDERS: PCP Physician Assistant Medical; Visit Provider Physician Assistant Medical | DX: G25.0 Essential tremor (principal); G25.2 Other specified forms of tremor; G47.33 Obstructive sleep apnea (adult) (pediatric); R41.89 Other symptoms and signs involving cognitive functions and awareness | CPT/HCPCS: 99212 ==

== ENCOUNTER 2024-10-06 10:00 | Outpatient (AMB) | payer MEDICARE, SELFPAY ==
--- OUTSIDE RECORDS SUMMARY | 2024-02-10 05:30 | XMS_ITS ---
Author Organization [facility] Address [address] [place] [address] Care Team Providers Care Small Battery Plate Assembler Name Role Phone Shaka Segovia MD Primary Care Provider Unavaila Jem Carver [phone] Encounters Encounter Location Date Provider Diagnosis [facility] [address] [place] [address] 02/10/2024 Jem Johnson Plan Of Treatment No Information Progress Notes * Mayela MATTHEWSeDOB: 3 (83 yo F)Acc No.[id number]:02/10/2024 Progress Notes Patient: Olena GUTIÉRREZ Provider: Meron Johnson DPM :1940 A ge:83 Y S ex:Female Date:02/10/2024 Address:[address] [place] [address], [place] [facility] Pcp:Shaka Segovia MD Subjective: * Chief Complaints: * * Medical History: Objective: * Vitals: Assessment: Plan: * Treatment: * Images: * The named appointment provid er may or may not be the originator of this progress note, and it is not deemed complete until electronically signed by the appointment provider. Sign off status: Pending * Provider: Meron Johnson DPM Date: 1 04/12/2023 Generated for Printi lamar/Eneida/eTransmitting on: 0 10/06/2024 10:36 AM EDT
--- NOTE | 2024-10-06 10:02 | MHC.OFFVIS ---
Vital Signs 10/06/24 10:03 Height 5 ft 6 in Weight 186 lb BMI 30.0 BP 128/74 Blood Pressure Location Rt brachial Position Sitting Pulse 73 Pulse Source Pulse Oximeter Pulse Oximetry (%) 97 Oxygen Delivery Method Room Air Intake Visit Reasons: 6 mo follow up Intake Note: Patient presents follow up Tremor medication. Patient would like to go over meds. Tremors are about the same. Accompanied by: Daughter Allergies No Known Allergies Allergy (Verified 10/06/24 10:05) HPI Comments Details: 83-yr-old female presents for f/u visit- pt last seen Nov 2023 for Essential tremors. Interim Medical History: Ankle sprain, Jan 04, 2024, missed a step much better now. R. Achilles deltoid, ankle boot on r. foot. Tremors are the same, coarse. She notices increased tremors, internally, especially at night and in voice, hand and head. BP is improved and well managed. She is moving in with her daughter and this will be a positive change in her quality of life. She was trialed on ropinirole 0.25 mg TID and developed an adverse reaction, hives. Satellite Specialist did a biopsy but no diagnosis so presumed to be a reaction to ropinirole. Her rash improved after several months. Feels stiff when lying down. She uses breathing exercises to calm her mood when anxious and tremors worsen with anxiety. She is taking Promidone - TID, and says it has not improved her symptoms. She tried CD-LD 25-100mg was not effective, she felt as if she was unbalanced and would fall. She notices increased tremors, internally, especially at night and in voice, hand and head. [facility] Medical History Obstructive sleep apnea hypopnea, mild Arthritis Surgical History Hx of breast surgery Family History Mother Hypotension Father No known health problems Social History Alcohol intake: never Patient Tobacco Use Status: Never used Tobacco Physical Exam Vital Signs: Last Vital Signs Pulse 73 10/06/24 10:03 BP 128/74 10/06/24 10:03 Pulse Ox 97 10/06/24 10:03 Oxygen Delivery Method Room Air 10/06/24 10:03 BMI result Body Mass Index 30.0 Const General: cooperative and no acute distress Orientation/consciousness: patient oriented x3 Eyes Pupils: Equal, round and reactive pupils present Resp Effort & Inspection: normal respiratory effort and able to speak in complete sentences Neuro Other: General: A&O x's 3 Expression: Intact Voice: Tremors Tremor: BUE postural tremor, action tremors L>R,, head tremor, lower jaw tremors Foot taps: Decreased Gait: Slow to stand, decreased arm swing, good posture Psych: Pleasant affect General: patient oriented x3 and moves all extremities Cranial nerves: Yes Equal, round and reactive pupils present, Yes Normal accommodation reflex present, Yes Normal facial strength present, Yes Midline tongue present, Yes Ability to bilaterally rotate head present and Yes Ability to bilaterally elevate shoulders present Cognition (Neuro): normal cognition Gait exam (Neuro): Normal gait present Motor exam (neuro): 5/5 motor strength present throughout and Normal motor muscle tone present throughout Results Reviewed Results Reviewed: MR/MR head/brain wo con IMPRESSION: 1. No acute intracranial abnormalities. 2. Global cerebral atrophy and chronic microangiopathy. Assessment & Plan Assessment & Plan (1) Obstructive sleep apnea hypopnea, mild: Code(s): G47.33 - Obstructive sleep apnea (adult) (pediatric) Category: Medical (2) Essential tremor: Comment: Head, voice, upper ext. essential coarse Code(s): G25.0 - Essential tremor Category: Medical (3) Cognitive changes: Code(s): R41.89 - Other symptoms and signs involving cognitive functions and awareness Category: Medical (4) Essential and other specified forms of tremor: Code(s): G25.0 - Essential tremor; G25.2 - Other specified forms of tremor Category: Medical Plan pamela r/o with psg For Essential Tremor ot/pt- swimming, walking, heavy weighted blanket Trialed her on and Stopped CD-LD 25-100mg- not tolerated. Stop Ropinirole 0.25mg po tid- adverse reaction within 2 weeks Hives Trialed Propranolol in the past but had bradycardia For now will continue Continue Primidone Mysoline 50 mg tid Gabapentin 400mg bid. For cognition, continue scrabble, Continue sertraline 50mg po BID per therapist. Referred for neuro cognitive therapy- Jan 28 2025, pending evaluation and results. Will Consider Botox for vocal tremor after ENT consult. Patient Instructions: Sleep Hygiene provided: set a scheduled bedtime and wake time to help regulate the circadian rhythm and balance the release of pituitary hormones. Sleep in a dark room, temperatures below 68 degrees, and no devices n bed. Limit caffeinated products 6 hours prior to bed, and limit fluids 2-4 hours prior to bed. Gentle night yoga, diffusing essential oils, and playing soft music can be relaxing. Coding Level of Care Code Est Pt Level 4 (22820) Diagnoses Obstructive sleep apnea hypopnea, mild G47.33 Essential tremor G25.0 Cognitive changes R41.89 Essential and other specified forms of tremor G25.0; G25.2
[2024-10-06 10:03] VITALS: BP 128/74; PULSE 73; O2SAT 97
--- OUTSIDE RECORDS SUMMARY | 2024-10-06 10:36 | XMS_ITS ---
Author Name [facility] Organization Unknown Results Test Name/Text Value Interpretation Date Range Source LAB AP CLINICAL INFORMATION Well-demarcated erythematous edematous plaques with pinpoint vesicles and mild erosions on the face, neck, arms and legs, with isolated area of well-defined erythema and clustered vesicles (this was where the rash originated); DDx: dermatitis unspecified vs contact dermatitis vs other vs hypersensitivity reaction vs drug eruption vs BP vs disseminated zoster Normal 07/29/2023 [facility] ICD-10 CODES Normal 07/29/2023 [facility] UCONNPATH LAB AP GROSS DESCRIPTION Received in formalin. Dimensions 3 x 3 x 4 mm, and submitted in 1 cassette. Also received is a vial of tissue transport medium (Jermaine) containing a biopsy specimen measuring 3 x 2 x 4 mm. Tissue was washed in phosphate buffered saline and then embedded in OCT for immunofluorescent studies. Tissue was frozen, cut at 5 microns, and stained with fluorescein-labeled antibody to human IgG, IgM, IgA, C3 and fibrinogen. Normal 07/29/2023 [facility]
--- OUTSIDE RECORDS SUMMARY | 2024-10-06 10:36 | XMS_ITS | Patient Health Record ---
Author Organization [facility] Address [address] [facility] [address] [place] [address] Care Team Providers Care Photographs Curator Name Role Phone NanetteProsper mayfield Primary Care Provider STELLA Leyva Unavailable [phone] Allergies No Known Allergies Results Component Value [...] the right foot and ankle Externally twice daily; Duration: 30 days 01/12/2024 Not-Taking Sertraline HCl 100 MG 1 tablet Orally On ce a day Active Problems Problem Type SNOMED Code ICD Code Onset Dates Problem Status W/U Status Risk Notes Problem Plantar fasciitis of right foot ([id number] 9101) Plantar fasciitis of right foot (M72.2) Active confirmed Vital Signs Heart Rate 72 /min 08/02/2024 Temperature 96.5 degrees Fahrenheit 08/02/2024 Respiratory Rate 16 /min 08/02/2024 Height 4ft 11in in 08/02/2024 Weight 174.3 lbs 08/02/2024 BMI 35.2 kg/m2 08/02/2024 Procedures Procedure Date Ordered Date Performed Result Body Sit e INJ TENDON SHEATH/LIGAMENT/FASCIA 01/12/2024 N/ A Encounters Encounter Location Date Provider Diagnosis [facility] [address] [address] 01/12/2024 STELLA SOARES Achilles tendinitis of right lower extremity M76.61 ; Plantar fasciitis of right foot M72.2 and Pain in right foot M79.671 [facility] [address] [address] 02/11/2024 STELLA SOARES Achilles tendinitis of right lower extremity M76.61 ; Plantar fasciitis of right foot M72.2 and Pain in right foot M79.671 [facility] [address] [address] 04/02/2024 STELLA SOARES Achilles tendinitis of right lower extremity M76.61 and Pain in right foot M79.671 [facility] [address] [address] 04/26/2024 STELLA SOARES Achilles tendinitis of right lower extremity M76.61 and Pain in right foot M79.671 [facility] [address] [address] 05/28/2024 STELLA SOARES Achilles tendinitis of right lower extremity M76.61 and Pain in right foot M79.671 [facility] [address] [address] 07/02/2024 STELLA SOARES Achilles tendinitis of right lower extremity M76.61 and Pain in right foot M79.671 [facility] [address] [address] 08/02/2024 STELLA SOARES Achilles tendinitis of right lower extremity M76.61 and Pain in right foot M79.671 [facility] [address] [address] 04/21/2024 STELLA SOARES Assessments Encounter Date Diagnosis [...] She is in agreement with this plan. 05/28/2024 Achilles tendinitis of right lower extremity (ICD-10 - M76.61) She has severe Achilles tendinitis, inflammation of the posterior ankle, and flexor tendinitis on the right side. We discussed that she would like to avoid surgery and the brace did not help. She has been wearing the pneumatic walking boot on the right side of the last 4 weeks. She has shown improvement but still has some pain on examination today. I would like her to remain in the walking boot for another 4 weeks manager multimedia. She is not to wear the boot while driving, and she can take the boot off to sleep and shower. She is to use the boot when standing or ambulating. We discussed using a cane for balance with the walking boot. I encouraged her to continue to rest the ankle. I would like to see her back in 4 weeks for a recheck. If improved, we can start to wean her out of the walking boot and start gentle stretching exercises. She is in agreement with this plan. 07/02/2024 Achilles tendinitis of right lower extremity (ICD-10 - M76.61) She had severe Achilles tendinitis, inflammation of the posterior ankle, and flexor tendinitis on the right side. We discussed that she would like to avoid surgery and the brace did not help. She has been wearing the pneumatic walking boot on the right side of the last 8 weeks. She has shown improvement and has minimal pain on examination today. I would like to start to transition her out of the walking boot. We discussed starting with being out of the boot 50% of the time. I recommended she start with wearing a sneaker in the morning and changing back to the boot in the afternoon. We also discussed that she should be in the boot when on her feet for more than 1 hour a time. We discussed if she starts to feel rebound pain when coming out of the boot, return to the boot manager multimedia for 1 week and then try to wean down again. The goal is she will only be wearing the boot 50% of the time for her next visit. I also reviewed and dispensed some stretching exercises I want her to perform for the right foot. We discussed she should perform these daily until her next visit. If improved, we can fully transition her out of the boot, and start some strengthening exercises. I would like to see her back in 4 weeks. She is in agreement with this plan. 08/02/2024 Achilles tendinitis of right lower extremity (ICD-10 - M76.61) She had severe Achilles tendinitis, inflammation of the posterior ankle, and flexor tendinitis on the right side. This appears resolved on examination today. She wore the walking boot for 8 full weeks before transitioning out. She has been fully out of the walking boot for about 1 week now without any rebound pain. She has shown improvement and has no pain on examination today. I also reviewed and dispensed some new strengthening exercises I want her to perform for the right foot. We discussed she should perform these daily. We discussed the pressure pain should slowly resolve over time. We discussed sandal brands that have a good support. Patient to follow up as needed. 08/02/2024 Pain in right foot (ICD-10 - M79.671) 07/02/2024 Pain in right foot (ICD-10 - M79.671) 05/28/2024 Pain in right foot (ICD-10 - M79.671) 04/26/2024 Pain in right foot (ICD-10 - M79.671) 04/02/2024 Pain in right foot (ICD-10 - M79.671) 01/12/2024 Pain in right foot (ICD-10 - M79.671) 02/11/2024 Plantar fasciitis of right foot (ICD-10 - M72.2) The plantar fasciitis is resolved. 02/11/2024 Pain in right foot (ICD-10 - M79.671) Plan Of Treatment Pending Test Test Name Order Date INJ TENDON SHEATH/LIGAMENT/FASCIA 2023 Insurance Providers Payer Name Payer Address Payer Phone Subscriber Number Group Number Insured Name Patient Relationship to Insured Coverage Start Date Coverage End Date [employer] of [place] [address] [place] [phone] [id number] Olena Matthews Self - patient is the insured [employer] [address] [place] [address] [phone] [id number] Olena Matthews Self - patient is [...]
== END 2024-10-06 10:55 | disposition home or self-care (01) ==
LOC: HO.HSMS 10:00
PROVIDERS: PCP Physician Assistant Medical; Visit Provider Physician Assistant Medical
DX: G47.33 Obstructive sleep apnea (adult) (pediatric) (principal); G25.0 Essential tremor; R41.89 Other symptoms and signs involving cognitive functions and awareness; G25.2 Other specified forms of tremor
CPT/HCPCS: 99214

== ENCOUNTER → 2024-10-06 10:00 | Outpatient (BNVA) | payer MEDICARE, SELFPAY | PROVIDERS: PCP Physician Assistant Medical; Visit Provider Physician Assistant Medical | DX: G47.33 Obstructive sleep apnea (adult) (pediatric) (principal); G25.0 Essential tremor; G25.2 Other specified forms of tremor; R41.89 Other symptoms and signs involving cognitive functions and awareness | CPT/HCPCS: 99212 ==

== ENCOUNTER 2025-01-11 10:05 | Outpatient (AMB) | payer MEDICARE, SELFPAY ==
[2025-01-11 10:10] VITALS: BP 126/74; PULSE 71; O2SAT 96; BMI 29.5
--- NOTE | 2025-01-11 10:10 | A.OFFVIS_ITS ---
Vital Signs 01/11/25 10:10 Height 5 ft 6 in Weight 183 lb BMI 29.5 BP 126/74 Blood Pressure Location Rt brachial Position Sitting Pulse 71 Pulse Source Pulse Oximeter Pulse Oximetry (%) 96 Oxygen Delivery Method Room Air Intake Visit Reasons: 3 mo follow up (CONF.) Intake Note: Patient presents follow up Tremor/Cognitive. Patient states since stopped taking CD/LD side effects are better. States did not really help with the tremors. memory about the same. Questions about US for tremors. Accompanied by: Daughter Allergies No Known Allergies Allergy (Verified 01/11/25 10:13) HPI Comments Details: 84-yr-old female presents for f/u visit- pt last seen for Essential tremors. PMH Ankle sprain, Jan 04, 2024, missed a step and sprained her r. achiles tendon and deltoid ligament, she was placed into a boot and gait improved after 8 weeks of PT. Tremors are the same, coarse. She notices increased tremors, internally and especially at night in head, voice, hands bilaterally. BP is improved and managed. She is moving in with her daughter this month, this will be a positive change in her quality of life. She was trialed on ropinirole 0.25 mg TID and developed an adverse reaction, hives. Structures Technician did a biopsy but no diagnosis so presumed to be a reaction to ropinirole. Her rash improved after several months. She started to feel stiff in her joints when lying down and walking, she was trialed on cd/ld 25/100mg and thi swas not effective, she fele unbalanced and would sleep all day. Her symptoms of depression worsened, so she discontinued it. She continues to take Primidone TID and sasy her symptoms are not improved, tremors worsen with anxiety and she tries to calm her mood with breathing exercises. She continues to have poor sleep with multiple night time arousals and gasping for air like noises, she wakes up chronically fatigued in the mornings. She has cramps in her legs which interrupt her sleep, with twitching discomfort. She would like to try the new ultrasound therapy for tremors. [facility] Medical History Obstructive sleep apnea hypopnea, mild Arthritis Surgical History Hx of breast surgery Family History Mother Hypotension Father No known health problems Social History Alcohol intake: never Patient Tobacco Use Status: Never used Tobacco Physical Exam Vital Signs: Last Vital Signs Pulse 71 01/11/25 10:10 BP 126/74 01/11/25 10:10 Pulse Ox 96 01/11/25 10:10 Oxygen Delivery Method Room Air 01/11/25 10:10 BMI result Body Mass Index 29.5 Const General: cooperative and no acute distress Orientation/consciousness: patient oriented x3 Eyes Pupils: Equal, round and reactive pupils present Resp Effort & Inspection: normal respiratory effort and able to speak in complete sentences Neuro Other: General: A&O x's 3 Expression: Intact Voice: Tremors Tremor: BUE postural tremor, action tremors L>R,, head tremor, lower jaw tremors Foot taps: Decreased Gait: Slow to stand, decreased arm swing, good posture Psych: Pleasant affect General: patient oriented x3 and moves all extremities Cranial nerves: Yes Equal, round and reactive pupils present, Yes Normal accommodation reflex present, Yes Normal facial strength present, Yes Midline tongue present, Yes Ability to bilaterally rotate head present and Yes Ability to bilaterally elevate shoulders present Cognition (Neuro): normal cognition Gait exam (Neuro): Normal gait present Motor exam (neuro): 5/5 motor strength present throughout and Normal motor muscle tone present throughout Psych Appearance: grossly normal Mental Status: mental status grossly normal Speech and movement: Slowed movement present (Neuro) Attitude: cooperative Thought process: Normal thought process present Thought content: Normal thought content present Assessment & Plan Assessment & Plan (1) Excessive daytime sleepiness: Code(s): G47.19 - Other hypersomnia Category: Medical (2) Obstructive sleep apnea hypopnea, mild: Code(s): G47.33 - Obstructive sleep apnea (adult) (pediatric) Category: Medical (3) Essential tremor: Comment: Head, voice, upper ext. essential coarse Code(s): G25.0 - Essential tremor Category: Medical (4) Cognitive changes: Code(s): R41.89 - Other symptoms and signs involving cognitive functions and awareness Category: Medical (5) Essential and other specified forms of tremor: Code(s): G25.0 - Essential tremor; G25.2 - Other specified forms of tremor Category: Medical Plan PSG in lab to r/o pamela fragmented sleep patterns with h/o chronic fatigue. Essential Tremor ot/pt- swimming, walking, heavy weighted blanket, resistance band exercises at home as tolerable. Trialed her on and Stopped CD-LD 25-100mg- not tolerated due to depressive symptoms, continue therapy with tho [facility]. Continue sertraline 50mg po BID per therapist. Stopped Ropinirole 0.25mg po tid- adverse reaction within 2 weeks Hives Trialed Propranolol in the past but had bradycardia Continue Primidone / Mysoline 50 mg tid Gabapentin 400mg bid. Nidra for night time tremors and RLS symptoms. She would like to try the new Ultrasound therapy for tremors will research this and f/u with her with a phone call or message on the portal. For cognition, continue board games puzzles, scrabble and social engagements. Referred for neuro cognitive therapy- Jan 28 2025, pending evaluation and results. Will Consider Botox for vocal tremor after ENT consult. 3month f/u Orders: Orders RT PSG in-lab sleep study 01/11/25 G47.19 - Other hypersomnia, G47.33 - O bstructive sleep apnea (adult) (pediatric) Patient Instructions: Sleep Hygiene provided: set a scheduled bedtime and wake time to help regulate the circadian rhythm and balance the release of pituitary hormones. Sleep in a dark room, temperatures below 68 degrees, and no devices n bed. Limit caffeinated products 6 hours prior to bed, and limit fluids 2-4 hours prior to bed. Gentle night yoga, diffusing essential oils, and playing soft music can be relaxing. Coding Level of Care Code Est Pt Level 4 (40553) Diagnoses Excessive daytime sleepiness G47.19 Obstructive sleep apnea hypopnea, mild G47.33 Essential tremor G25.0 Cognitive changes R41.89 Essential and other specified forms of tremor G25.0; G25.2
== END 2025-01-11 11:08 | disposition home or self-care (01) ==
LOC: HO.HSMS 10:05
PROVIDERS: PCP Physician Assistant Medical; Visit Provider Physician Assistant Medical
DX: G47.19 Other hypersomnia (principal); G47.33 Obstructive sleep apnea (adult) (pediatric); G25.0 Essential tremor; R41.89 Other symptoms and signs involving cognitive functions and awareness; G25.2 Other specified forms of tremor
CPT/HCPCS: 99214

== ENCOUNTER → 2025-01-11 10:05 | Outpatient (BNVA) | payer MEDICARE, SELFPAY | PROVIDERS: PCP Physician Assistant Medical; Visit Provider Physician Assistant Medical | DX: G47.19 Other hypersomnia (principal); G47.33 Obstructive sleep apnea (adult) (pediatric); G25.0 Essential tremor; R41.89 Other symptoms and signs involving cognitive functions and awareness; G25.2 Other specified forms of tremor | CPT/HCPCS: 99212 ==

== ENCOUNTER → 2025-02-09 19:30 | Outpatient (REF) | payer MEDICARE, SELFPAY ==
--- OUTSIDE RECORDS SUMMARY | 2024-02-10 04:30 | XMS_ITS ---
Author Organization [facility] Address [address] [place] [address] Care Team Providers Care Marine Fisheries Technician Name Role Phone Shaka Segovia MD Primary Care Provider UnavailJem Adler [phone] Encounters Encounter Location Date Provider Diagnosis [facility] [address] [place] [address] 02/10/2024 Jem Johnson Plan Of Treatment No Information Progress Notes * Mayela MATTHEWSeDOB: 3 (84 yo F)Acc No.[id number]:02/10/2024 Progress Notes Patient: Olena GUTIÉRREZ Provider: Meron Johnson DPM :1940 A ge:83 Y S ex:Female Date:02/10/2024 Address:[address] [place] [address], [place] [facility] Pcp:Shaka Segovia MD Subjective: * Chief Complaints: * * Medical History: Objective: * Vitals: Assessment: Plan: * Treatment: * Images: * The named appointment provid er may or may not be the originator of this progress note, and it is not deemed complete until electronically signed by the appointment provider. Sign off status: Pending * Provider: Meron Johnson DPM Date: 04/12/2023 Generated for Maryi lamar/Facaing/eTransmitting on: 04/12/2024 09:15 PM EST
--- OUTSIDE RECORDS SUMMARY | 2024-03-17 04:45 | XMS_ITS ---
Author Organization [facility] Address [address] [address] Care Team Providers Care Lacquer Mixer Name Role Phone Prosper Fitzpatrick Primary Care Provider Unavailabl STELLA Umanzor Unavailable [phone] REASON FOR VISIT 1 month f/u Encounters Encounter Location Date Provider Diagnosis [facility] [address] [facility] [address] [place] [address] 03/17/2024 STELLA MILLER Plan Of Treatment No Information Progress Notes * Mayela MATTHEWSeDOB: 3 (84 yo F)Acc No.[id number]:03/17/2024 Progress Note Patient: Olena GUTIÉRREZ Provider: Meron Miller DPM :1940 A ge:83 Y S ex:Female Date:03/17/2024 Phone: Address:[facility] [place], [id number] Pcp:Prosper Fitzpatrick Subjective: * Chief Complaints: * 1 . 1 month f/u. * Medical History: Objective: * Vitals: Assessment: Plan: * Treatment: * Billing Information: * Visit Code: * Procedure Codes: * Electronic signature of CHANTELLE MILLER D.P.M on 02/09/2025 at 09:15 PM EST Sign off status: Pending * Provider: Meron Miller DPM Date: 0 03/17/2024 Generated for Dai ng/Facaing/eTransmitting on: 1 04/12/2024 09:15 PM EST
--- OUTSIDE RECORDS SUMMARY | 2025-02-09 21:16 | XMS_ITS | Patient Health Record ---
Author Organization [facility] Address [address] [facility] [address] [place] [address] Care Team Providers Care Group Sales Manager Name Role Phone NanetteProsper mayfield Primary Care Provider STELLA Leyva Unavailable [phone] Allergies No Known Allergies Results Component Value [...] Notes Problem Plantar fasciitis of right foot (9902099926758 9101) Plantar fasciitis of right foot (M72.2) Active confirmed Vital Signs Heart Rate 72 /min 08/02/2024 Temperature 96.5 degrees Fahrenheit 08/02/2024 Respiratory Rate 16 /min 08/02/2024 Height 4ft 11in in 08/02/2024 Weight 174.3 lbs 08/02/2024 BMI 35.2 kg/m2 08/02/2024 Encounters Encounter Location Date Provider Diagnosis [facility] [address] [address] 02/11/2024 STELLA SOARES Achilles tendinitis of right lower extremity M76.61 ; Plantar fasciitis of right foot M72.2 and Pain in right foot M79.671 [facility] [address] [address] 04/02/2024 STELLA SOARES Achilles tendinitis of right lower extremity M76.61 and Pain in right foot M79.671 [facility] [address] [address] 04/26/2024 STELLA SOARES Achilles tendinitis of right lower extremity M76.61 and Pain in right foot M79.671 [facility] [address] [address] 05/28/2024 STELLA SOARES Achilles tendinitis of right lower extremity M76.61 and Pain in right foot M79.671 [facility] [address] [address] 07/02/2024 STELLA SOARES Achilles tendinitis of right lower extremity M76.61 and Pain in right foot M79.671 [facility] [address] [address] 08/02/2024 STELLA SOARES Achilles tendinitis of right lower extremity M76.61 and Pain in right foot M79.671 [facility] [address] [address] 04/21/2024 STELLA SOARES Assessments Encounter Date Diagnosis (ICD Code) Assessment Notes Treatment Notes Treatment Clinical Notes Section Notes 02/11/2024 Achilles tendinitis of right lower extremity [...] 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
--- OUTSIDE RECORDS SUMMARY | 2025-02-09 21:16 | XMS_ITS | Patient Health Record ---
Author Organization [facility] Address [address] [place] [address] Care Team Providers Care Materials Associate Name Role Phone Shaka Segovia MD Primary Care Provider Unavaila Jem Carver Unavailable [phone] Reason For Referral No Information Medications Medication SIG (Take, Route, Frequency, Duration) Notes Start Date End Date Status Physical Therapy . . . 2-3x/week; Durat ion: 3-4 weeks 08/05/2018 Active Levothyroxine Sodium Active Gabapentin 400 MG [...] Are you an other tobacco user? No Plan Of Treatment Pending Test Test Name Order Date X ray : Foot, left 2V 06/04/2017 X ray : Foot, right 2V 06/04/2017 X ray : Foot, left 3V 08/05/2018 X ray : Foot, right 3V 08/05/2018 X ray : Foot, right 3V 01/17/2014 [id number] TENDON SHEATH/LIGAMENT 0 08/05/2018 40634, J0702- Neuroma/Injection 01/18/20 14 80196, J0702- Neuroma/Injection 05/03/19 15 18195, J0702- Neuroma/Injection 07/14/19 15 Insurance Providers Payer Name Payer Address Payer Phone Subscriber Number Group Number Insured Name Patient Relationship to Insured Coverage Start Date Coverage End Date Medicare [employer] [address] [place] [address] [id number] Olena Matthews Self - patient is the insured [employer] [address] [place] [address] [id number] Olena Matthews Self - patient is the insured Medical (General) History Medical History History ICD Code Thyroid disorder Measles Mumps Chicken pox Surgical History Surgery Date(Month/Year) lumpectomy 01/2004
== END ==
LOC: HO.SL 19:30
PROVIDERS: Visit Provider Physician Assistant Medical
DX: G47.33 Obstructive sleep apnea (adult) (pediatric) (principal); G47.19 Other hypersomnia
CPT/HCPCS: 95810

== ENCOUNTER → 2025-02-09 21:51 | Outpatient (BNV) | payer MEDICARE, SELFPAY | PROVIDERS: Visit Provider Psychiatry & Neurology Neurology | DX: G47.19 Other hypersomnia (principal) | CPT/HCPCS: 95810 ==